=== PATIENT | female | born 1990 | race African-American/Black ===

== ENCOUNTER 2016-05-29 12:11 | Inpatient (IN) | payer OTHER ==
[2016-05-29 12:15] VITALS: BMI 32.3
[2016-05-29] MEDS ORDERED: ALBUTEROL SO4 2.5/IPRATROPIUM 0.5 INH SOL 3 ML VIAL.NEB. NEB ONE ×2 (13:19→13:20)
--- NOTE | 2016-05-29 13:22 | PDOC ---
History of Present Illness <Thomas Sunshineen - Last Filed: 05/29/16 15:17> - General History Source: Patient Exam Limitations: No Limitations - History of Present Illness Initial Comments: 05/29/16 13:18 patient here with complaints of cough, fevers, chills, runny nose and generalized body aches for up to 3 weeks. States the past few days is progressively become worse. Has used [id number] medications with some minimal relief. States was "too busy" to get evaluated. 05/29/16 16:25 Timing/Duration: reports: changing over time, getting worse Severity: reports: mild, moderate Possible Cause: Yes: no prior episodes Associated Symptoms: reports: denies symptoms, cough, fever/chills, muscle aches , nasal congestion, nasal drainage, sore throat <Lorena Green - Last Filed: 05/29/16 22:17> - General Chief Complaint: Cold Symptoms Stated Complaint: CHEST PAIN Time Seen by Provider: 05/29/16 12:55 Past History <Tor Sunshine - Last Filed: 05/29/16 15:17> - Travel Traveled outside of the country in the last 30 days: No Close contact w/someone who was outside of country & ill: No - Past Medical History Other medical history: DENIES. - Psycho/Social/Smoking Cessation Hx Anxiety: No Suicidal Ideation: No Smoking History: Never smoked Hx Alcohol Use: No Drug/Substance Use Hx: No <Lorena Green - Last Filed: 05/29/16 22:17> - Past Medical History Allergies/Adverse Reactions: Allergies Allergy/AdvReac Type Severity Reaction Status Date / Time No Known Allergies Allergy Verified 05/29/16 12:12 Home Medications: Ambulatory Orders Albuterol Sulfate Inhaler - [Ventolin HFA Inhaler -] 1 - 2 inh PO Q4H #1 inhaler 05/29/16 Azithromycin [Zithromax -] 250 mg PO UTDICT #6 tab 05/29/16 Respiratory Specific PMHX - Complaint Specific PMHX Bronchitis: No Pneumonia: No <Lorena Green - Last Filed: 05/29/16 22:17> Review of Systems - Review of Systems Able to Perform ROS?: Yes Is the patient limited Brazilian proficient: Yes Constitutional: Yes: Symptoms Reported, See HPI, Fever, Loss of Appetite, Malaise, Weakness HEENTM: Yes: Symptoms Reported, See HPI, Nose Congestion, Throat Pain Respiratory: Yes: Symptoms reported, See HPI, Cough, Wheezing : No: Symptoms Reported Musculoskeletal: Yes: Symptoms Reported, Muscle Pain, Muscle Weakness Integumentary: Yes: Symptoms Reported Neurological: Yes: Symptoms reported, See HPI, Headache All Other Systems: Reviewed and Negative <Lorena Green - Last Filed: 05/29/16 22:17> *Physical Exam - Vital Signs Last Vital Signs Temp Pulse Resp BP Pulse Ox 97.7 F 102 H 18 146/82 98 05/29/16 12:12 05/29/16 12:12 05/29/16 12:12 05/29/16 12:12 05/29/16 12:12 <Tor Sunshine - Last Filed: 05/29/16 15:17> - Vital Signs Last Vital Signs Temp Pulse Resp BP Pulse Ox 97.7 F 102 H 18 146/82 98 05/29/16 12:12 05/29/16 12:12 05/29/16 12:12 05/29/16 12:12 05/29/16 12:12 - Physical Exam General Appearance: Yes: Nourished, Appropriately Dressed, Apparent Distress, Mild Distress HEENT: positive: ELIZA (glassy), TMs Normal (congested but landmarks easily visualized), Pharyngeal Erythema (no exudate or selling ), Nasal Congestion ( clear), Rhinorrhea. negative: Normal ENT Inspection, Pharynx Normal Neck: positive: Tender, Supple, Lymphadenopathy (R), Lymphadenopathy (L) Respiratory/Chest: positive: Lungs Clear (but coarse inspiratory expiratory breath sounds), Normal Breath Sounds Cardiovascular: positive: Regular Rate Gastrointestinal/Abdominal: positive: Normal Bowel Sounds, Soft. 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, Fully Oriented, Alert, Normal Mood/ Affect, Normal Response, Motor Strength 5/5 <Lorena Green - Last Filed: 05/29/16 22:17> ED Treatment Course - RADIOLOGY Radiology Studies Ordered: Category Date Time Status CHEST X-RAY PORTABLE* [RAD] Stat Radiology 05/29/16 15:00 Ordered - Medications Given in the ED: ED Medications Discontinued Medications Generic Name Dose Route Start Last Admin Trade Name Roxie PRN Reason Stop Dose Admin Albuterol/Ipratropium 1 amp 05/29/16 13:19 05/29/16 13:24 Duoneb - NEB 05/29/16 13:20 1 amp ONCE ONE Administration <Tor Sunshine - Last Filed: 05/29/16 15:17> - LABORATORY CBC & Chemistry Diagram: 05/29/16 16:29 05/29/16 15:10 <Lorena Green - Last Filed: 05/29/16 22:17> Progress Note - Progress Note Progress Note: Upper respiratory infection, influenza testing negative. Some improvement with DuonebWill treat with Zithromax for bronchitis, albuterol to assist airway clearance, and have follow-up with PMD <Lorena Green - Last Filed: 05/29/16 22:17> Medical Decision Making - Medical Decision Making 05/29/16 15:42 Patient ready for discharge, states feels mild improvement after DuoNeb and understands plan for treatment of bronchitis. About EKG that was taken from triage that noted some changes. Upon further review the EKG was noted to have multiple T-wave changes. Case was reviewed with Dr. Lee who agreed patient should be moved to the main emergency department for further evaluation and cardiac workup. Patient was moved to room 3, nurses were updated to treatment thus far and plan patient and family understand current course. <Lorena Green - Last Filed: 05/29/16 22:17> *DC/Admit/Observation/Transfer <Tor Sunshine - Last Filed: 05/29/16 15:17> - Discharge Dispostion Admit: Yes <Lorena Green - Last Filed: 05/29/16 22:17> Diagnosis at time of Disposition: Bronchitis, Myocarditis - Discharge Dispostion Condition at time of disposition: Stable - Prescriptions - Referrals - Patient Instructions - Post Discharge Activity
--- NOTE | 2016-05-29 15:25 | PDOC ---
History of Present Illness - General History Source: Patient Exam Limitations: No Limitations - History of Present Illness Initial Comments: 05/29/16 15:33 The patient is a 26 year old female, with no significant past medical history, who presents to the ED with cough, fevers, chills, runny nose and generalized body aches for up to 3 weeks. She also reports intermittent chest pain, she denies any at the moment. Patient notes that she has been experiencing the following symptoms over the past 3 weeks that progressively worsened over the last few days. She denies chest pain, shortness of breath, headache and dizziness. She denies nausea, vomit, diarrhea and constipation. She denies dysuria, frequency, urgency and hematuria. <Mildred Briscoe - Last Filed: 05/29/16 15:40> <Tor Sunshine - Last Filed: 05/29/16 17:54> - General Chief Complaint: Cold Symptoms Stated Complaint: CHEST PAIN Time Seen by Provider: 05/29/16 12:55 Past History <Mildred Briscoe - Last Filed: 05/29/16 15:40> - Past Medical History Other medical history: DENIES. - Psycho/Social/Smoking Cessation Hx Anxiety: No Suicidal Ideation: No Smoking History: Never smoked Hx Alcohol Use: No Drug/Substance Use Hx: No <Tor Sunshine - Last Filed: 05/29/16 17:54> - Past Medical History Allergies/Adverse Reactions: Allergies Allergy/AdvReac Type Severity Reaction Status Date / Time No Known Allergies Allergy Verified 05/29/16 12:12 Home Medications: Ambulatory Orders Albuterol Sulfate Inhaler - [Ventolin HFA Inhaler -] 1 - 2 inh PO Q4H #1 inhaler 05/29/16 Azithromycin [Zithromax -] 250 mg PO UTDICT #6 tab 05/29/16 Review of Systems - Review of Systems Able to Perform ROS?: Yes Comments:: 05/29/16 15:34 CONSTITUTIONAL: Present: fever, chills Absent: diaphoresis, generalized weakness, malaise, loss of appetite HEENT: Present: rhinorrhea Absent: nasal congestion, throat pain, throat swelling, difficulty swallowing, mouth swelling, ear pain, eye pain, visual Changes CARDIOVASCULAR: Absent: chest pain, syncope, palpitations, irregular heart rate, lightheadedness , peripheral edema RESPIRATORY: Present: cough Absent: shortness of breath, dyspnea with exertion, orthopnea, wheezing, stridor , hemoptysis GASTROINTESTINAL: Absent: abdominal pain, abdominal distension, nausea, vomiting, diarrhea, constipation, melena, hematochezia GENITOURINARY: Absent: dysuria, frequency, urgency, hesitancy, hematuria, flank pain, genital pain MUSCULOSKELETAL: Absent: myalgia, arthralgia, joint swelling SKIN: Absent: rash, itching, pallor HEMATOLOGIC/IMMUNOLOGIC: Absent: easy bleeding, easy bruising, lymphadenopathy, frequent infections ENDOCRINE: Absent: unexplained weight gain, unexplained weight loss, heat intolerance, cold intolerance NEUROLOGIC: Absent: headache, focal weakness or paresthesias, dizziness, unsteady gait, seizure, mental status changes, bladder or bowel incontinence PSYCHIATRIC: Absent: anxiety, depression, suicidal or homicidal ideation, hallucinations. <Mildred Briscoe - Last Filed: 05/29/16 15:40> - Review of Systems Is the patient limited Irish proficient: Yes <Tor Sunshine - Last Filed: 05/29/16 17:54> *Physical Exam - Vital Signs Last Vital Signs Temp Pulse Resp BP Pulse Ox 97.7 F 102 H 18 146/82 98 05/29/16 12:12 05/29/16 12:12 05/29/16 12:12 05/29/16 12:12 05/29/16 12:12 - Physical Exam Comments: 05/29/16 15:36 GENERAL: Well developed, well nourished. Awake and alert. In no acute distress. HEENT: Normocephalic, atraumatic. PERRLA, EOMI. No conjunctival pallor. Sclera are non- icteric. Moist mucous membranes. Oropharynx is clear. NECK: Supple. Full ROM. No JVD. Carotid pulses 2+ and symmetric, without bruits. No thyromegaly. No lymphadenopathy. CARDIOVASCULAR: Regular rate and rhythm. No murmurs, rubs, or gallops. Distal pulses are 2+ and symmetric. PULMONARY: No evidence of respiratory distress. Lungs clear to auscultation bilaterally. No wheezing, rales or rhonchi. ABDOMINAL: Soft. Non-tender. Non-distended. No rebound or guarding. No organomegaly. Normoactive bowel sounds. MUSCULOSKELETAL Normal range of motion at all joints. No bony deformities or tenderness. No CVA tenderness. EXTREMITIES: No cyanosis. No clubbing. No edema. No calf tenderness. SKIN: Warm and dry. Normal capillary refill. No rashes. No jaundice. NEUROLOGICAL: Alert, awake, appropriate. Cranial nerves 2-12 intact. No deficits to light touch and temperature in face, upper extremities and lower extremities. No motor deficits in the in face, upper extremities and lower extremities. Normoreflexic in the upper and lower extremities. Normal speech. Toes are downgoing bilaterally. PSYCHIATRIC: Cooperative. Good eye contact. Appropriate mood and affect. <Mildred Briscoe - Last Filed: 05/29/16 15:40> - Vital Signs Last Vital Signs Temp Pulse Resp BP Pulse Ox 97.7 F 102 H 18 146/82 98 05/29/16 12:12 05/29/16 12:12 05/29/16 12:12 05/29/16 12:12 05/29/16 12:12 <Tor Sunshine - Last Filed: 05/29/16 17:54> Heart Score/ECG Review #1 05/29/16 15:[address] Sunshine Impression: Normal sinus rhythm ST & T wave abnormality, consider inferior ischemia ST & T wave abnormality, consider anterolateral ischemia Vent. rate 93 bpm QRS duration 90 ms The patient is currently pain free but in Afib <Mildred Briscoe - Last Filed: 05/29/16 15:40> ED Treatment Course - Medications Given in the ED: ED Medications Discontinued Medications Generic Name Dose Route Start Last Admin Trade Name Freq PRN Reason Stop Dose Admin Albuterol/Ipratropium 1 amp 05/29/16 13:19 05/29/16 13:24 Duoneb - NEB 05/29/16 13:20 1 amp ONCE ONE Administration <Mildred Briscoe - Last Filed: 05/29/16 15:40> - LABORATORY CBC & Chemistry Diagram: 05/29/16 16:29 05/29/16 15:10 - RADIOLOGY Radiology Studies Ordered: Category Date Time Status CHEST X-RAY PORTABLE* [RAD] Stat Radiology 05/29/16 15:00 Ordered - Medications Given in the ED: ED Medications Discontinued Medications Generic Name Dose Route Start Last Admin Trade Name Freq PRN Reason Stop Dose Admin Albuterol/Ipratropium 1 amp 05/29/16 13:19 05/29/16 13:24 Duoneb - NEB 05/29/16 13:20 1 amp ONCE ONE Administration <Tor Sunshine - Last Filed: 05/29/16 17:54> Medical Decision Making - Medical Decision Making 05/29/16 15:[address] Barber <Mildred Briscoe - Last Filed: 05/29/16 15:40> *DC/Admit/Observation/Transfer - Attestations Scribe Attestion: 05/29/16 15:39 Documentation prepared by KETAN Mccauley, acting as medical sociologist for Tor Sunshine MD. <Mildred Briscoe - Last Filed: 05/29/16 15:40> - Discharge Dispostion Admit: Yes <Tor Sunshine - Last Filed: 05/29/16 17:54> Diagnosis at time of Disposition: Bronchitis, Myocarditis - Discharge Dispostion Condition at time of disposition: Stable - Prescriptions Prescriptions: Albuterol Sulfate Inhaler - [Ventolin HFA Inhaler -] 1 - 2 inh PO Q4H #1 inhaler Azithromycin [Zithromax -] 250 mg PO UTDICT #6 tab - Referrals Referrals: Milton Jenkins MD [Primary Care Provider] - - Patient Instructions Printed Discharge Instructions: DI for Acute Bronchitis Additional Instructions: Rest, drink lots of fluids: Teas, water, soups, Pedialyte Saltwater gargles Steamy showers/seem to face break up mucus Avoid contact with others until fevers and cough resolved Lots of handwashing and good hygiene Continue [id number] medications for symptomatic relief Tylenol or Motrin for fever and pain Complete Zithromax as directed Proventil inhaler 2 puffs 4 times a day for the next 2 days then as needed for cough Followup with private physician in one to 2 days as needed Return to emergency department for worsened symptoms, fevers, dehydration - Post Discharge Activity Work/School Note: Back to Work
[2016-05-29 16:39] LABS: C-REACTIVE PROTEIN 3.4 MG/DL (0.00-0.3)
[2016-05-29 16:40] LABS: TROPONIN I 0.03 ng/ml (0.00-0.05)
[2016-05-29 16:47] LABS: BASOPHIL 0.8 % (0-2.0); EOSINOPHIL 0.3 % (0-4.5); MCH 30.3 pg (25.7-33.7); MCHC 33.7 g/dl (32.0-36.0); MEAN PLT VOLUME 10.1 fl (7.5-11.1); NEUTROPHILS 71.2 % (42.8-82.8); PLATELET COUNT 229 K/MM3 (134-434); RDW 13.2 % (11.6-15.6); WHITE BLOOD COUNT 7.9 K/mm3 (4.0-10.0)
[2016-05-29 17:26] LABS: ALBUMIN 4.1 g/dl (3.4-5.0); ALK PHOS 76 U/L (45-117); ANION GAP 14 (8-16); BILIRUBIN,TOTAL 0.5 mg/dL (0.2-1.0); CALCIUM 8.8 mg/dL (8.5-10.1); CO2 21 mmol/L (21-32); CREATININE 0.8 mg/dL (0.55-1.02); GLUCOSE,RANDOM 75 mg/dL (74-106); SGOT/AST 18 U/L (15-37); SGPT/ALT 17 U/L (12-78); TOT PROT 8.4 g/dl (6.4-8.2)
[2016-05-29] MEDS ORDERED: ACETAMINOPHEN 325 MG TABLET (FP) PO ONE (18:01)
[2016-05-29] MEDS ORDERED: ACETAMINOPHEN 325 MG TABLET (FP) ONE (18:10)
--- NOTE | 2016-05-29 18:13 | PDOC ---
*Physical Exam - Vital Signs Last Vital Signs Temp Pulse Resp BP Pulse Ox 97.7 F 64 20 129/90 99 05/29/16 12:12 05/29/16 16:26 05/29/16 16:26 05/29/16 16:26 05/29/16 16:26 ED Treatment Course - LABORATORY CBC & Chemistry Diagram: 05/29/16 16:29 05/29/16 15:10 - ADDITIONAL ORDERS Additional order review: Laboratory Results 05/29/16 05/29/16 05/29/16 15:15 15:10 15:10 Sodium Potassium Chloride Carbon Dioxide Anion Gap BUN Creatinine Creat Clearance w eGFR Random Glucose Calcium Total Bilirubin AST ALT Alkaline Phosphatase Creatine Kinase CK-MB (CK-2) Troponin I C-Reactive Protein Total Protein Albumin Beta HCG, Quant < 1.0 Serum , Qual Negative Urine HCG, Qual Questionable 05/29/16 05/29/16 15:10 15:08 Sodium 136 Potassium 3.7 Chloride 101 Carbon Dioxide 21 Anion Gap 14 BUN 12 Creatinine 0.8 Creat Clearance w eGFR > 60 Random Glucose 75 Calcium 8.8 Total Bilirubin 0.5 AST 18 ALT 17 Alkaline Phosphatase 76 Creatine Kinase 219 H CK-MB (CK-2) 2.167 Troponin I 0.03 C-Reactive Protein 3.4 H Total Protein 8.4 H Albumin 4.1 Beta HCG, Quant Serum , Qual Urine HCG, Qual 05/29/16 16:29 RBC 5.07 MCV 90.0 MCHC 33.7 RDW 13.2 MPV 10.1 Neutrophils % 71.2 Lymphocytes % 19.8 Monocytes % 7.9 Eosinophils % 0.3 Basophils % 0.8 - Medications Given in the ED: ED Medications Discontinued Medications Generic Name Dose Route Start Last Admin Trade Name Freemmanuel PRN Reason Stop Dose Admin Albuterol/Ipratropium 1 amp 05/29/16 13:19 05/29/16 13:24 Duoneb - NEB 05/29/16 13:20 1 amp ONCE ONE Administration Medical Decision Making - Medical Decision Making 05/29/16 18:13 Dr. Godoy called shortly after agreeing to admit patient stating she would not be able to see patient tomorrow, and to admit to hospitalist instead. I have discussed with Dr. Gonzalez and he accepts patient. *DC/Admit/Observation/Transfer Diagnosis at time of Disposition: Bronchitis, Myocarditis - Discharge Dispostion Condition at time of disposition: Stable - Prescriptions Prescriptions: Albuterol Sulfate Inhaler - [Ventolin HFA Inhaler -] 1 - 2 inh PO Q4H #1 inhaler Azithromycin [Zithromax -] 250 mg PO UTDICT #6 tab - Referrals Referrals: Milton Jenkins MD [Primary Care Provider] - - Patient Instructions Printed Discharge Instructions: DI for Acute Bronchitis Additional Instructions: Rest, drink lots of fluids: Teas, water, soups, Pedialyte Saltwater gargles Steamy showers/seem to face break up mucus Avoid contact with others until fevers and cough resolved Lots of handwashing and good hygiene Continue [id number] medications for symptomatic relief Tylenol or Motrin for fever and pain Complete Zithromax as directed Proventil inhaler 2 puffs 4 times a day for the next 2 days then as needed for cough Followup with private physician in one to 2 days as needed Return to emergency department for worsened symptoms, fevers, dehydration - Post Discharge Activity Work/School Note: Back to Work
[2016-05-29 18:49] LABS: TROPONIN I 0.02 ng/ml (0.00-0.05)
--- NOTE | 2016-05-29 20:24 | PN ---
<JunBernardoHamlet - Last Filed: 05/29/16 20:23> Teaching Attending Note Name of Resident: Florencia Spence ATTENDING PHYSICIAN STATEMENT I saw and evaluated the patient. I reviewed the resident's note and discussed the case with the resident. I agree with the resident's findings and plan as documented. SUBJECTIVE: OBJECTIVE: ASSESSMENT AND PLAN: <MikalJeffery - Last Filed: 05/29/16 21:00> Teaching Attending Note ATTENDING PHYSICIAN STATEMENT: I saw and evaluated the patient. I reviewed the resident's note and discussed the case with the resident. I agree with the resident's findings and plan as documented. SUBJECTIVE: The patient is a 26 year old female, with past medical history of GERD, who presents to the ED with chest pain, cough, subjective fever, chills, hot flashes , runny nose and generalized body aches for up to 3 weeks. She also reports intermittent chest pain related to cough with minimal sputum production and is reproducible upon palpation. The patient notes that her chest pain is not related to exertion and has no limitation to exercise. 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 She denies shortness of breath, headache and dizziness. She denies diarrhea and constipation. She denies dysuria, frequency, urgency and hematuria. ROS +Vomiting, Nausea, Loss of appetite. OBJECTIVE: Vital Signs: Last Vital Signs Temp Pulse Resp BP Pulse Ox 97.7 F 64 20 129/90 99 05/29/16 12:12 05/29/16 16:26 05/29/16 16:26 05/29/16 16:26 05/29/16 16:26 GENERAL: Awake, alert, and fully oriented, in no acute distress HEENT: Atraumatic. Moist mucosa. No JVD no sinus tenderness no LAD LUNGS: No distress, speaks full sentences, clear to auscultation bilaterally HEART: Regular rate and rhythm, normal S1 and S2, no murmurs, rubs or gallops ABDOMEN: Soft, nontender, normoactive bowel sounds. No guarding, no rebound. No masses EXTREMITIES: Normal inspection, Normal range of motion, no edema. No clubbing or cyanosis. NEUROLOGICAL: No focal deficits noted SKIN: Warm, Dry, normal turgor, no rashes or lesions noted. Labs: CBCD WBC 7.9 K/mm3 (4.0-10.0) 05/29/16 16:29 RBC 5.07 M/mm3 (3.60-5.2) 05/29/16 16:29 Hgb 15.4 GM/dL (10.7-15.3) H 05/29/16 16:29 Hct 45.6 % (32.4-45.2) H 05/29/16 16:29 MCV 90.0 fl (80-96) 05/29/16 16: MCHC 33.7 g/dl (32.0-36.0) 05/29/16 16: RDW 13.2 % (11.6-15.6) 05/29/16 16: Plt Count 229 K/MM3 (134-434) 05/29/16 16:29 MPV 10.1 fl (7.5-11.1) 05/29/16 16:29 CMP Sodium 136 mmol/L (136-145) 05/29/16 15:10 Potassium 3.7 mmol/L (3.5-5.1) 05/29/16 15:10 Chloride 101 mmol/L (98-107) 05/29/16 15:10 Carbon Dioxide 21 mmol/L (21-32) 05/29/16 15:10 Anion Gap 14 (8-16) 05/29/16 15:10 BUN 12 mg/dL (7-18) 05/29/16 15:10 Creatinine 0.8 mg/dL (0.55-1.02) 05/29/16 15:10 Creat Clearance w eGFR > 60 (>60) 05/29/16 15:10 Calcium 8.8 mg/dL (8.5-10.1) 05/29/16 15:10 Total Bilirubin 0.5 mg/dL (0.2-1.0) 05/29/16 15:10 AST 18 U/L (15-37) 05/29/16 15:10 ALT 17 U/L (12-78) 05/29/16 15:10 Alkaline Phosphatase 76 U/L (45-117) 05/29/16 15:10 Total Protein 8.4 g/dl (6.4-8.2) H 05/29/16 15:10 Albumin 4.1 g/dl (3.4-5.0) 05/29/16 15:10 CBC, BMP 05/29/16 16:29 05/29/16 15:10 Troponin, BNP 05/29/16 05/29/16 15:08 16:14 Troponin I 0.03 0.02 Imaging: ECG Impression: Normal sinus rhythm. T wave inversions in the inferior and anterior leads. CXR Impression: Bilateral interstitial changes. ASSESSMENT AND PLAN: 1. Viral URI- possibly transmitted from children at work place versus atypical pneumonia due to interstitial infiltrates on chest x-ray -Send nasal PCR for viruses -Send mycoplasma IGM -Send legionella ag in urine -start azithromycin 500 mg PO daily for 5 days 2. CP- likely musculoskeletal secondary to cough unlikely ACS troponin x1 negative -r/o myocarditis secondary to viral URI. -Repeat troponin -Repeat ESR -Repeat ECG -Ibuprofen 400 mg Q6 PRN -Transthoracic echo when feasible -Cardiology consult 3. DVT PPX- low risk for DVT -Early ambulation 4. Normal diet Admit to telemetry. Documentation prepared by Jeffery Ren, acting as medical physicist for Dr. Jun MD.
--- NOTE | 2016-05-29 20:35 | HP ---
CHIEF COMPLAINT: Chest pain/pressure with cough PCP: Dr. Angela Godoy HISTORY OF PRESENT ILLNESS: Patient is a 26 year old female with a PMHx of GERD who presents to the ED complaining of intermittent midsternal chest pain described as a heavy and pressure-like feeling for the last three weeks associated with a minimal productive cough, subjective fever, chills, hot flashes, rhinorrhea, nausea, vomiting and generalized body aches. Patient reports pain is reproducible upon palpation and occurs when she coughs and five minutes after she coughs with a severity of 10/10. Patient states that warm compresses on her chest help alleviate the pain for a short amount of time. She denies any chest pain related to exertion. 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 Patient denies having her flu shot this year. Otherwise, patient denies headaches, dizziness, loss of consciousness, acute visual changes, throat pain, ear pain, shortness of breath, palpitations, abdominal pain, dysuria, frequency. ER course was notable for: (1) EKG (2) Influenza swab negative (3) Tylenol, albuterol Recent Travel: None PAST MEDICAL HISTORY: GERD PAST SURGICAL HISTORY: None Social History: Smoking:Denies Alcohol: Denies Drugs: Denies Family History: Uncle from sudden age 60's, mother had 3 stents and HTN Allergies: No Known Allergies Allergy (Verified 05/29/16 12:12) HOME MEDICATIONS: Medication Instructions Recorded Albuterol Sulfate Inhaler - 1 - 2 inh PO Q4H #1 inhaler 05/29/16 [Ventolin HFA Inhaler -] Azithromycin [Zithromax -] 250 mg PO UTDICT #6 tab 05/29/16 REVIEW OF SYSTEMS CONSTITUTIONAL: Present: fever, chills, diaphoresis, generalized weakness, malaise, loss of appetite Absent: weight change HEENT: Present: rhinorrhea Absent: nasal congestion, throat pain, throat swelling, difficulty swallowing, mouth swelling, ear pain, eye pain, visual changes CARDIOVASCULAR: Present: chest pain Absent: syncope, palpitations, irregular heart rate, lightheadedness, peripheral edema RESPIRATORY: Present: cough Absent: Shortness of breath, dyspnea with exertion, orthopnea, wheezing, stridor , hemoptysis GASTROINTESTINAL: Absent: abdominal pain, abdominal distension, nausea, vomiting, diarrhea, constipation, melena, hematochezia GENITOURINARY: Absent: dysuria, frequency, urgency, hesitancy, hematuria, flank pain, genital pain MUSCULOSKELETAL: Absent: myalgia, arthralgia, joint swelling, back pain, neck pain SKIN: Absent: rash, itching, pallor HEMATOLOGIC/IMMUNOLOGIC: Absent: easy bleeding, easy bruising, lymphadenopathy, frequent infections ENDOCRINE: Absent: unexplained weight gain, unexplained weight loss, heat intolerance, cold intolerance NEUROLOGIC: Absent: headache, focal weakness or paresthesias, dizziness, unsteady gait, seizure, mental status changes, bladder or bowel incontinence PSYCHIATRIC: Absent: anxiety, depression, suicidal or homicidal ideation, hallucinations. PHYSICAL EXAMINATION GENERAL: Awake, alert, and fully oriented, in no acute distress. HEAD: Normal with no signs of trauma. EYES: Pupils equal, round and reactive to light, extraocular movements intact, sclera anicteric, conjunctiva clear. No lid lag. EARS, NOSE, THROAT: Ears normal, nares patent, oropharynx clear without exudates. Moist mucous membranes. NECK: Normal range of motion, supple without lymphadenopathy, JVD, or masses. LUNGS: Wheezing in bilateral lower lungs, with no crackles. No accessory muscle use. HEART: Tenderness upon palpation of midsternal chest. Regular rate and rhythm, normal S1 and S2 without murmur, rub or gallop. ABDOMEN: Soft, nontender, not distended, normoactive bowel sounds, no guarding, no rebound, no masses. No hepatomegaly or splenomegaly. MUSCULOSKELETAL: Normal range of motion at all joints. No bony deformities or tenderness. No CVA tenderness. UPPER EXTREMITIES: No peripheral edema. LOWER EXTREMITIES: No peripheral edema. NEUROLOGICAL: Cranial nerves II-XII intact. Normal speech. PSYCHIATRIC: Cooperative. Good eye contact. Appropriate mood and affect. SKIN: Warm, dry, normal turgor, no rashes or lesions noted. Chest X-Ray: Bilateral interstitial markings EKG: Normal Sinus Rhythm, (+) T wave inversions in the inferior and anterior leads. ASSESSMENT/PLAN: Patient is a 26 year old female with a PMHx of GERD who presents to the ED with URI symptoms associated with reproducible chest pain worsened with coughing. Patient admitted to telemetry for observation for further management and monitoring. Chest pain -Reproducible and likely costrochondritis secondary to coughing -Will rule out myocarditis from viral URI -Troponin negative x1, will repeat -Repeat EKG in the morning -Ibuprofen 400mg Q6H PRN -ECHO -Cardiology consult -Repeat ESR Upper Respiratory infection -Possibly from atypical pneumonia -Possibly transmitted from work -Chest x-ray revealed interstitial infiltrates -Respiratory PCR ordered -Urine Legionella antigen -Mycoplasma IGM -Azithromycin 500mg daily -DuoNeb PRN F/E/N -On no Fluids -Electrolytes wnl -Regular diet Prophylaxis -SCD's for prophylaxis -No GI prophylaxis required Disposition -Full code -Admit to tele observation. Awaiting to be seen by cardiology Visit type - Emergency Visit Emergency Visit: Yes ED Registration Date: 05/29/16 Care time: The patient presented to the Emergency Department on the above date and was hospitalized for further evaluation of their emergent condition. - New Patient This patient is new to me today: Yes Date on this admission: 05/30/16 - Critical Care Critical Care patient: No
[2016-05-29] MEDS ORDERED: IBUPROFEN 400 MG TABLET (FP) PO PRN (20:44)
[2016-05-30] MEDS ORDERED: AZITHROMYCIN 250 MG TABLET (FP) PO ONE (02:02)
[2016-05-30] MEDS ORDERED: ALBUTEROL SO4 2.5/IPRATROPIUM 0.5 INH SOL 3 ML VIAL.NEB. NEB PRN (02:03)
[2016-05-30] MEDS ORDERED: AZITHROMYCIN 250 MG TABLET (FP) ONE (02:06)
[2016-05-30] MEDS ORDERED: ALBUTEROL SO4 2.5/IPRATROPIUM 0.5 INH SOL 3 ML VIAL.NEB. NEB ONE (02:08)
[2016-05-30 05:40] LABS: MCH 30.3 pg (25.7-33.7); MCHC 33.8 g/dl (32.0-36.0); MEAN CELL VOLUME 89.6 fl (80-96); MEAN PLT VOLUME 9.3 fl (7.5-11.1); PLATELET COUNT 200 K/MM3 (134-434); RDW 13.1 % (11.6-15.6); WHITE BLOOD COUNT 6.3 K/mm3 (4.0-10.0)
[2016-05-30 06:11] LABS: ALBUMIN 3.7 g/dl (3.4-5.0); ANION GAP 8 (8-16); CALCIUM 8.5 mg/dL (8.5-10.1); CO2 24 mmol/L (21-32); CREATININE 0.9 mg/dL (0.55-1.02); GLUCOSE,RANDOM 109 mg/dL (74-106); SGOT/AST 19 U/L (15-37); SGPT/ALT 17 U/L (12-78)
[2016-05-30 06:13] LABS: ALK PHOS 68 U/L (45-117); BILIRUBIN,TOTAL 0.4 mg/dL (0.2-1.0); TOT PROT 7.8 g/dl (6.4-8.2)
[2016-05-30 07:29] LABS: PLATELET COMMENT2 NO CLOTTING DETECTED; PLATELET COMMENT3 FEW LARGE PLTS; PLATELET ESTIMATE ADEQUATE (NORMAL); SMUDGE CELLS FEW
[2016-05-30] MEDS ORDERED: guaiFENesin 200 MG/10 ML 10 ML UNIT-DOSE CUPS PO PRN (08:57)
--- NOTE | 2016-05-30 08:57 | PN ---
Progress Note, Physician - Current Medication List Current Medications: Active Medications Albuterol/Ipratropium (Duoneb -) 1 amp NEB Q6H PRN PRN Reason: SHORTNESS OF BREATH Last Admin: 05/30/16 02:13 Dose: 1 amp Ibuprofen (Motrin -) 400 mg PO Q6H PRN PRN Reason: PAIN - Objective Vital Signs: Vital Signs Temperature 97.7 F 05/29/16 12:12 Pulse Rate 59 L 05/30/16 07:53 Respiratory Rate 18 05/30/16 07:53 Blood Pressure 122/76 05/30/16 07:53 O2 Sat by Pulse Oximetry (%) 100 05/30/16 07:53 Constitutional: Yes: Well Nourished, No Distress, Calm Eyes: Yes: WNL, Conjunctiva Clear HENT: Yes: WNL, Atraumatic, Normocephalic Neck: Yes: WNL, Supple, Trachea Midline Cardiovascular: Yes: WNL, Regular Rate and Rhythm Respiratory: Yes: WNL, Regular, CTA Bilaterally Gastrointestinal: Yes: WNL, Normal Bowel Sounds Musculoskeletal: Yes: WNL Extremities: Yes: WNL Edema: No Integumentary: Yes: WNL Neurological: Yes: WNL, Alert, Oriented ...Motor Strength: WNL Psychiatric: Yes: WNL Impression/Plan Impression/Plan: 26 year old woman admitted for chest pain Chest pain -pt has had URI symptoms for the past 2 weeks and had pleuritic pain but yesterday had midsternal chest pressure with SOB and diaphoresis -has history significant for mother with CAD and [place] and Father's identical twin brother who had sudden cardiac -trops negative x2 -EKG shows flipped t waves in inferior leads -discussed case at length with cardio attending and it is agreed that pt should have inpatient 2D echo in the AM Visit type - Emergency Visit Emergency Visit: Yes ED Registration Date: 05/30/16 Care time: The patient presented to the Emergency Department on the above date and was hospitalized for further evaluation of their emergent condition. - New Patient This patient is new to me today: Yes Date on this admission: 05/30/16 - Critical Care Critical Care patient: No
--- NOTE | 2016-05-30 12:20 | CON.CARD ---
Consult Consult Specialty:: Cardiology Referred by:: ER Reason for Consultation:: Abnormal EKG, possible myocarditis - History of Present Illness Chief Complaint: viral symptoms as well as chest pain History of Present Illness: 26 year old woman with no pmh with 3 week history of URI symptoms, cough, fever , chillls, runny nose, body aches, felt better yesterday and went out of the house. she then felt sudden onset sob, and chest pressure thus she came to the ER. Pt. seen and examined in the ER in nad. still has chest pressure with palpation of her chest and with movements of her upper body. denies any sob. no palpitations. no pnd, orthopnea, or LE edema. - History Source History Provided By: Patient, Medical Record Limitations to Obtaining History: No Limitations - Past Medical History ...LMP: 05/23/16 ...: No - Alcohol/Substance Use Hx Alcohol Use: No - Smoking History Smoking history: Never smoked - Social History ADL: Independent History of Recent Travel: No Home Medications - Allergies Allergies/Adverse Reactions: Allergies Allergy/AdvReac Type Severity Reaction Status Date / Time No Known Allergies Allergy Verified 05/29/16 12:12 - Home Medications Home Medications: Ambulatory Orders NK [No Known Home Medication] 05/30/16 Family Disease History - Family Disease History Family Disease History: Heart Disease: Mother Other Family History: uncle-[place] early age Review of Systems - Review of Systems Constitutional: reports: Chills, Fever, Malaise Eyes: denies: No Symptoms, Blind Spots, Blurred Vision, Double Vision, Eye Pain , Floaters, Photophobia, Recent Change in Vision, Other HENT: reports: Nasal Congestion, Throat Pain. denies: No Symptoms, Difficult Swallowing, Ear Discharge, Ear Pain, Epistaxis, Gingival Bleeding, Hearing Loss , Mouth Swelling, Ocular Prosthesis, Toothache, Ringing in Ears, Other Neck: denies: No Symptoms, Decreased ROM, Lumps, Pain on Movement, Stiffness, Swollen Glands, Tenderness, Other Cardiovascular: reports: Chest Pain, Shortness of Breath. denies: No Symptoms, Edema, Palpitations, Other Respiratory: reports: Cough, SOB. denies: No Symptoms, Exercise Intolerance, Hemoptysis, Orthopnea, PND, Snoring, SOB on Exertion, Wheezing, Other Gastrointestinal: denies: No Symptoms, Abdominal Pain, Bloating, Constipation, Diarrhea, Dysphagia, Indigestion, Melena, Nausea, Rectal Bleeding, Vomiting, Vomiting Blood, Other Genitourinary: denies: No Symptoms, Burning, Discharge, Dysuria, Flank Pain, Frequency, Hematuria, Incontinence, Lesions, Menses, Pain, Testicular Mass, Testicular Pain, Testicular Swelling, Urgency, Vaginal Bleeding, Other Breasts: denies: No Symptoms Reported, See HPI, Breast Implants, Discharge from Nipple, Lumps, Pain, Skin Changes, Other Musculoskeletal: denies: No Symptoms, Back Pain, Crepitus, Decreased ROM, Extremity Pain, Joint Pain, Joint Swelling, Muscle Pain, Muscle Cramps, Muscle Weakness, Other Integumentary: denies: No Symptoms, Blister, Bruising, Change in Color, Eczema, Erythema, Incision, Lesions, Lump, Pallor, Pruritis, Rash, Wound, Other Neurological: denies: No Symptoms, Change in LOC, Change in Speech, Confusion, Dizziness, Headache, Incoordination, Numbness, Parasthesia, Pre-Existing Deficit , Seizure, Syncope, Tremors, Unsteady Gait, Weakness, Other Endocrine: denies: No Symptoms, Excessive Sweating, Flushing, Increased Hunger, Increased Thirst, Intolerance to Cold, Intolerance to Heat, Unexplained Weight Gain, Unexplained Weight Loss, Other Hematology/Lymphatic: denies: No Symptoms, Easily Bruised, Excessive Bleeding, Swollen Glands, Other Psychiatric: denies: No Symptoms, Altered Sleep Pattern, Anxiety, Depression, Hallucinations, Panic, Paranoia, Suicidal, Other Vital Signs: Vital Signs Temperature 97.7 F 05/29/16 12:12 Pulse Rate 59 L 05/30/16 07:53 Respiratory Rate 18 05/30/16 07:53 Blood Pressure 122/76 05/30/16 07:53 O2 Sat by Pulse Oximetry (%) 93 L 05/30/16 10:49 Constitutional: Yes: Well Nourished, No Distress, Calm Eyes: Yes: WNL, Conjunctiva Clear, EOM Intact, PERRL HENT: Yes: WNL, Atraumatic, Normocephalic Neck: Yes: WNL, Supple, Trachea Midline Respiratory: Yes: WNL, Regular, CTA Bilaterally. No: Rales, Rhonchi, Wheezes Gastrointestinal: Yes: WNL, Normal Bowel Sounds, Soft. No: Distention, Tenderness Renal/: Yes: WNL Cardiovascular: Yes: WNL, Regular Rate and Rhythm. No: Bradycardia, Tachycardia , Pulse Irregular, Gallop, Rub, Varicosities JVD: No Carotid Bruit: No PMI: Non-Displaced Heart Sounds: Yes: S1, S2. No: Split S2, S3, S4, Clicks, Gallop, Rub, Bruit Murmur: No: Systolic Murmur, Diastolic Murmur Musculoskeletal: Yes: WNL Extremities: Yes: WNL Edema: No Peripheral Pulses WNL: Yes Peripheral Pulses: 2+ Left Doralis Pedis, 2+ Right Dorsalis Pedis Integumentary: Yes: WNL Neurological: Yes: WNL, Alert, Oriented, Cran Nerves II-XII Intact ...Motor Strength: WNL Psychiatric: Yes: WNL, Alert, Oriented - Other Data Labs, Other Data: Laboratory Tests 05/29/16 05/29/16 05/29/16 15:08 15:13 16:14 WBC Hgb Hct Plt Count ESR 58 H Sodium Potassium Chloride Carbon Dioxide BUN Creatinine Random Glucose Calcium Total Bilirubin AST ALT Alkaline Phosphatase Creatine Kinase 219 H 204 H Troponin I 0.03 0.02 Total Protein Albumin 05/30/16 05/30/16 05/30/16 05:30 05:30 05:30 WBC 6.3 Hgb 14.4 Hct 42.6 Plt Count 200 ESR Sodium 139 Potassium 4.1 Chloride 107 Carbon Dioxide 24 BUN 11 Creatinine 0.9 Random Glucose 109 H D Calcium 8.5 Total Bilirubin 0.4 AST 19 ALT 17 Alkaline Phosphatase 68 Creatine Kinase Troponin I < 0.02 Total Protein 7.8 Albumin 3.7 ekg-nsr 93bpm T inversions II, III, aVF, V2, V4, St depressions V5, V6, II, III , aVF Imaging - Results Chest X-ray: Report Reviewed, Image Reviewed EKG: Report Reviewed, Image Reviewed Other: Report Reviewed, Image Reviewed Problem List - Problems (1) Bronchitis Code(s): J40 - BRONCHITIS, NOT SPECIFIED ACUTE OR CHRONIC (2) Myocarditis Code(s): I51.4 - MYOCARDITIS, UNSPECIFIED Assessment/Plan 26 year old woman with no pmh with 3 week history of URI symptoms, cough, fever , chillls, runny nose, body aches, felt better yesterday and went out of the house. she then felt sudden onset sob, and chest pressure thus she came to the ER. Found in the ER to have an abnormal ekg, concern for myocarditis. Chest pain-atypical, unlikely ischemia, reproducible on exam -concern for myocarditis with recent URI and abnormal EKG -pt is hemodynamically stable and symptoms have improved -cardiac enzymes wnl -cont tele monitoring for now -plan for echo tomorrow to evaluate LV function -if echo tomorrow shows no sig structural heart disease or pericardial effusion pt would be acceptable for discharge home from a cardiac standpoint with plan for close outpatient follow up and consideration for cardiac mri as well as additional work up as needed
[2016-05-30] MEDS: INFLUENZA VACCINE 45 MCG/0.5 ML (MDV 16-17) IM ONE ×2 (14:09→14:14)
--- NOTE | 2016-05-30 23:36 | EKG ---
Test Reason : Blood Pressure : / mmHG Vent. Rate : 093 BPM Atrial Rate : 093 BPM P-R Int : 160 ms QRS Dur : 090 ms QT Int : 342 ms P-R-T Axes : 078 051 -35 degrees QTc Int : 425 ms NORMAL SINUS RHYTHM ABNORMAL ECG NO PREVIOUS ECGS AVAILABLE Confirmed by SHABANA LYNCH MD ([id number]) on 05/30/2016 11:35:41 PM Referred By: Confirmed By:SHABANA LYNCH MD
[2016-05-31 08:17] VITALS: BP 116/63; PULSE 75; TEMP 97.8
--- NOTE | 2016-05-31 10:43 | PN ---
Teaching Attending Note Name of Resident: John Beavers ATTENDING PHYSICIAN STATEMENT I saw and evaluated the patient. I reviewed the resident's note and discussed the case with the resident. I agree with the resident's findings and plan as documented. SUBJECTIVE: seen and evaluated at the bedside OBJECTIVE: resting comfortably in bed ASSESSMENT AND PLAN: 26 year old woman admitted for chest pain Chest pain -pt has had URI symptoms for the past 2 weeks and had pleuritic pain but yesterday had midsternal chest pressure with SOB and diaphoresis -has history significant for mother with CAD and [place] and Father's identical twin brother who had sudden cardiac -trops negative x2 -EKG shows flipped t waves in inferior leads -discussed case at length with cardio attending and it is agreed that pt should have inpatient 2D echo today -possible discharge if no abnormalities found on echo
--- NOTE | 2016-05-31 11:32 | DS ---
Physical Exam: SUBJECTIVE: Patient seen and examined at bedside. Feels well today. Has minimal cough. Denies N/V/F/C, CP, SOB, abd pain. OBJECTIVE: Vital Signs Temperature 97.8 F 05/31/16 08:15 Pulse Rate 75 05/31/16 08:15 Respiratory Rate 18 05/31/16 08:15 Blood Pressure 116/63 05/31/16 08:15 O2 Sat by Pulse Oximetry (%) 99 05/31/16 08:07 PHYSICAL EXAM GENERAL: The patient is awake, alert, and fully oriented, in no acute distress. HEAD: Normal with no signs of trauma. EYES: PERRL, extraocular movements intact, sclera anicteric, conjunctiva clear. ENT: Ears normal, nares patent, oropharynx clear without exudates, moist mucous membranes. NECK: Trachea midline, full range of motion, supple. LUNGS: Mild crackles B/L, no accessory muscle use. HEART: Regular rate and rhythm, S1, S2 without murmur, rub or gallop. ABDOMEN: Soft, nontender, nondistended, normoactive bowel sounds, no guarding, no rebound, no hepatosplenomegaly, no masses. EXTREMITIES: 2+ pulses, warm, well-perfused, no edema. NEUROLOGICAL: Normal speech, gait not observed. PSYCH: Normal mood, normal affect. SKIN: Warm, dry, normal turgor, no rashes or lesions noted. LABS HOSPITAL COURSE: Date of Admission:05/30/16 Date of Discharge: 05/31/16 26 y/o F with PMH of GERD presented to ER with c/o intermittent midsternal chest pain which was heavy and pressure like. Sx have been present for 3 weeks and associated with productive cough, subjective fevers, hot flashes, rhinorrhea , N/V, and generalized body aches. Pain is reproducible on palpation. 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 She did not have flu shot this year. Chest pain seemed most likely from URI and coughing. She improved during hospital course. CXR showed no acute pathology. EKG showed flipped T waves on inferior leads. She had echo and stress echo done which showed were unremarkable and negative for abnormalities. Pt was discharged to follow up with PCP in 1 week and to f/u with Dr. Barber in 1-2 weeks. Minutes to complete discharge: 25 Discharge Summary Reason For Visit: BRONCHITIS, MYOCARDITIS Current Active Problems Bronchitis (Acute) Myocarditis (Acute) Condition: Stable - Instructions Diet, Activity, Other Instructions: Rest, drink lots of fluids: Teas, water, soups Saltwater gargles Steamy showers/seem to face break up mucus Lots of handwashing and good hygiene Continue [id number] medications for symptomatic relief Tylenol or Motrin for fever and pain Followup with private physician in one to 2 days as needed Return to emergency department for worsened symptoms, fevers, dehydration Follow up with Dr. Barber, your chief service observer, in 1-2 weeks. Referrals: Milton Jenkins MD [Primary Care Provider] - 1 Week Nick Barber MD [Staff Physician] - 1 Week - Home Medications Comprehensive Discharge Medication List: Ambulatory Orders NK [No Known Home Medication] 05/30/16 This patient is new to me today: Yes Date on this admission: 05/31/16 Emergency Visit: Yes ED Registration Date: 05/30/16 Care time: The patient presented to the Emergency Department on the above date and was hospitalized for further evaluation of their emergent condition. Critical Care patient: No - Discharge Referral Referred to [facility] No
--- NOTE | 2016-05-31 12:31 | PN ---
Progress Note, Physician Chief Complaint: cp History of Present Illness: 26 year old woman with no pmh with 3 week history of URI symptoms, cough, fever , chillls, runny nose, body aches, felt better yesterday and went out of the house. she then felt sudden onset sob, and chest pressure thus she came to the ER. Pt. seen and examined in the ER in nad. still has chest pressure with palpation of her chest and with movements of her upper body. denies any sob. no palpitations. no pnd, orthopnea, or LE edema. - Current Medication List Current Medications: Active Medications Albuterol/Ipratropium (Duoneb -) 1 amp NEB Q6H PRN PRN Reason: SHORTNESS OF BREATH Last Admin: 05/30/16 02:13 Dose: 1 amp Guaifenesin (Robitussin -) 10 ml PO Q4H PRN PRN Reason: COUGH Ibuprofen (Motrin -) 400 mg PO Q6H PRN PRN Reason: PAIN - Objective Vital Signs: Vital Signs Temperature 97.8 F 05/31/16 08:15 Pulse Rate 75 05/31/16 08:15 Respiratory Rate 18 05/31/16 08:15 Blood Pressure 116/63 05/31/16 08:15 O2 Sat by Pulse Oximetry (%) 99 05/31/16 08:07 Eyes: Yes: WNL, Conjunctiva Clear, EOM Intact HENT: Yes: WNL, Atraumatic, Normocephalic Neck: Yes: WNL, Supple, Trachea Midline Cardiovascular: Yes: WNL, Regular Rate and Rhythm Respiratory: Yes: WNL, Regular, CTA Bilaterally Gastrointestinal: Yes: WNL, Normal Bowel Sounds Genitourinary: Yes: WNL Musculoskeletal: Yes: WNL Extremities: Yes: WNL Edema: No Integumentary: Yes: WNL Neurological: Yes: WNL, Alert, Oriented ...Motor Strength: WNL Psychiatric: Yes: WNL Assessment/Plan Assessment/Plan 26 year old woman with no pmh with 3 week history of URI symptoms, cough, fever , chillls, runny nose, body aches, felt better yesterday and went out of the house. she then felt sudden onset sob, and chest pressure thus she came to the ER. Found in the ER to have an abnormal ekg, concern for myocarditis. Chest pain-atypical, unlikely ischemia, reproducible on exam -concern for myocarditis with recent URI and abnormal EKG -pt is hemodynamically stable and symptoms have improved -cardiac enzymes wnl -cont tele monitoring for now -plan for echo tomorrow to evaluate LV function -if echo shows no sig structural heart disease or pericardial effusion I would recommend ECHO stress test to evaluate abnormal EKG and the chest pain.
[2016-06-03 00:07] LABS: INFLUENZA ANTIBODY TYPE B Negative (Neg:<1:8)
[2016-06-04 00:09] LABS: COXSACKIE A16 IGM Negative titer (Neg:<1:10); COXSACKIE A24 IGM Negative titer (Neg:<1:10); COXSACKIE A7 IGM Negative titer (Neg:<1:10); COXSACKIE A9 IGM Negative titer (Neg:<1:10)
== END 2016-05-31 17:29 | disposition home or self-care (01) | DRG 207 ==
LOC: JERFT 12:11 → SUPCPDRO 12:11 → JERFT 14:25 → JERBED 18:01 → UNDOADMIN 18:01 → JERBED 05-30 07:32 → J4W 05-30 15:05
PROVIDERS: ADMIT Internal Medicine; ATTEND Internal Medicine
DX: I51.4 Myocarditis, unspecified (principal); J20.9 Acute bronchitis, unspecified; J06.9 Acute upper respiratory infection, unspecified; K21.9 Gastro-esophageal reflux disease without esophagitis; R07.89 Other chest pain
CPT/HCPCS: 36415; 71010-TC; 80053; 82550; 82553; 84484; 84702; 84703; 85025; 85651; 86140; 86658; 86710; 86738; 87040; 87633; 87804; 87899; 93005; 93010; 93306-TC; 93351; 99285-25; G0008; Q2037

== ENCOUNTER 2017-06-02 09:01 | Emergency (ER) | payer OTHER ==
[2017-06-02 09:08] VITALS: TEMP 98.1; BMI 28.2
[2017-06-02] MEDS ORDERED: KETOROLAC TROMETHAMINE 30 MG/1 ML VIAL IVPUSH ONE (10:02)
[2017-06-02] MEDS ORDERED: KETOROLAC TROMETHAMINE 30 MG/1 ML VIAL ONE (10:14)
[2017-06-02 10:17] LABS: BASO % 0.3 % (0-2.0); EOS % 0.2 % (0-4.5); HEMATOCRIT 41.3 % (32.4-45.2); HEMOGLOBIN 13.4 GM/dL (10.7-15.3); MCH 30.4 pg (25.7-33.7); MCHC 32.4 g/dl (32.0-36.0); MEAN CELL VOLUME 93.9 fl (80-96); MEAN PLT VOLUME 9.4 fl (7.5-11.1); MONO % 4.2 % (3.8-10.2); NEUT % 81.3 % (42.8-82.8); PLATELET COUNT 254 K/MM3 (134-434); RDW 13.7 % (11.6-15.6); WHITE BLOOD COUNT 11.6 K/mm3 (4.0-10.0)
[2017-06-02 10:33] LABS: INR 1.18 (0.82-1.09); PROTHROMBIN TIME (PATIENT) 13.3 SEC (9.98-11.88)
[2017-06-02 10:36] LABS: ACTIVATED PTT 29.2 SECONDS (26.9-34.4)
[2017-06-02 10:41] LABS: ALBUMIN 4.2 g/dl (3.4-5.0); ANION GAP 8 (8-16); BILIRUBIN,TOTAL 0.4 mg/dL (0.2-1.0); BLOOD UREA NITROGEN 14 mg/dL (7-18); CALCIUM 8.9 mg/dL (8.5-10.1); CHLORIDE 108 mmol/L (98-107); CO2 25 mmol/L (21-32); CREATININE 0.8 mg/dL (0.55-1.02); GLUCOSE,RANDOM 82 mg/dL (74-106); SGPT/ALT 19 U/L (12-78); SODIUM 141 mmol/L (136-145); TOT PROT 7.7 g/dl (6.4-8.2)
[2017-06-02 10:43] LABS: ALK PHOS 58 U/L (45-117)
[2017-06-02 10:45] LABS: POTASSIUM 3.9 mmol/L (3.5-5.1); SGOT/AST 16 U/L (15-37)
[2017-06-02 10:45] LABS: HCG,QUALITATIVE URINE NEGATIVE
--- NOTE | 2017-06-02 10:47 | PDOC ---
History of Present Illness - History of Present Illness Initial Comments: 06/02/17 11:15 The patient is a 27 year old female with a significant PMH of bronchitis and myocarditis who presents to the emergency department with midsternal chest pain , upper body aches, and thigh aches that began approximately two days ago. The patient describes the midsternal chest pain as a "punching feeling", constant since this morning, and exacerbated with deep inspiration. The patient reports subjective chills, nasal congestion, and cough but denies fever, palpitations, leg swelling, nausea, vomit, diarrhea and constipation. The patient states the midsternal chest pain is different from her symptoms in May when she was diagnosed with myocarditis. The patient's family history is significant for mother has 3 stents placed and her uncle had cardiac arrest. 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 The patient denies getting her flu shot this year. The patient denies shortness of breath, headache and dizziness. Denies dysuria, frequency, urgency and hematuria. Allergies: NKA Past surgical history: None reported. Social history: No reported alcohol, drug, or cigarette use. PCP: Dr. Jenkins <Debra Bowers - Last Filed: 06/02/17 11:26> - General History Source: Patient Exam Limitations: No Limitations <Myron Mak - Last Filed: 06/02/17 12:16> - General Chief Complaint: Chest Pain Stated Complaint: CHEST PAIN Time Seen by Provider: 06/02/17 09:21 Past History <Debra Bowers - Last Filed: 06/02/17 11:26> - Past Medical History COPD: No DVT: No - Suicide/Smoking/Psychosocial Hx Smoking History: Never smoked Information on smoking cessation initiated: No Hx Alcohol Use: No Drug/Substance Use Hx: No Substance Use Type: None <Myron Mak - Last Filed: 06/02/17 12:16> - Past Medical History Allergies/Adverse Reactions: Allergies Allergy/AdvReac Type Severity Reaction Status Date / Time bee pollen Allergy Verified 06/02/17 09:04 bay flavor Allergy Verified 06/02/17 09:04 Home Medications: Ambulatory Orders Naproxen 500 mg PO BID PRN #20 tablet 06/02/17 Review of Systems - Review of Systems Able to Perform ROS?: Yes Comments:: 06/02/17 11:18 GENERAL/CONSTITUTIONAL: No fever or chills. No weakness. HEAD, EYES, EARS, NOSE AND THROAT: No change in vision. No ear pain or discharge. No sore throat. CARDIOVASCULAR: (+) Midsternal chest pain. No shortness of breath. RESPIRATORY: (+) Nasal congestion. (+) Mild cough. No wheezing, or hemoptysis. GASTROINTESTINAL: No nausea, vomiting, diarrhea or constipation. GENITOURINARY: No dysuria, frequency, or change in urination. MUSCULOSKELETAL: (+) Upper body aches. (+) Thigh aches. No neck or back pain. SKIN: No rash NEUROLOGIC: No headache, vertigo, loss of consciousness, or change in strength/ sensation. ENDOCRINE: No increased thirst. No abnormal weight change. HEMATOLOGIC/LYMPHATIC: No anemia, easy bleeding, or history of blood clots. ALLERGIC/IMMUNOLOGIC: No hives or skin allergy. <Debra Bowers - Last Filed: 06/02/17 11:26> *Physical Exam - Vital Signs Last Vital Signs Temp Pulse Resp BP Pulse Ox 98.1 F 65 16 128/72 100 06/02/17 09:04 06/02/17 09:04 06/02/17 09:04 06/02/17 09:04 06/02/17 09:04 - Physical Exam Comments: 06/02/17 11:19 GENERAL: (+) Nasal congestion. Awake, alert, and fully oriented, in no acute distress HEAD: No signs of trauma EYES: PERRLA, EOMI, sclera anicteric, conjunctiva clear ENT: Auricles normal inspection, hearing grossly normal, nares patent, oropharynx clear without exudates. Moist mucosa NECK: Normal ROM, supple, no lymphadenopathy, JVD, or masses LUNGS: Breath sounds equal, clear to auscultation bilaterally. No wheezes, and no crackles HEART: (+) Midsternal chest pain reproducible to palpation. Regular rate and rhythm, normal S1 and S2, no murmurs, rubs or gallops ABDOMEN: Soft, nontender, normoactive bowel sounds. No guarding, no rebound. No masses EXTREMITIES: Normal range of motion, no edema. No clubbing or cyanosis. No cords, erythema, or tenderness NEUROLOGICAL: Cranial nerves II through XII grossly intact. Normal speech, normal gait SKIN: Warm, Dry, normal turgor, no rashes or lesions noted. <Debra Bowres - Last Filed: 06/02/17 11:26> - Vital Signs Last Vital Signs Temp Pulse Resp BP Pulse Ox 98.1 F 65 16 128/72 100 06/02/17 09:04 06/02/17 09:04 06/02/17 09:04 06/02/17 09:04 06/02/17 09:04 <Myron Mak - Last Filed: 06/02/17 12:16> Heart Score/ECG Review - History History: Slightly suspicious - Electrocardiogram EKG: Normal - Age Age: </= 45 - Risk Factors Based on the list above the patient has:: No risk factors known #1 ECG reviewed & interpreted by me at: 09:15 06/02/17 10:46 NSR 56, no std/marianne, TWI III, normal axis, normal interval, QTC 387 msec <Myron Mak - Last Filed: 06/02/17 12:16> ED Treatment Course - LABORATORY CBC & Chemistry Diagram: 06/02/17 10:08 06/02/17 10:10 - ADDITIONAL ORDERS Additional order review: Laboratory Results 06/02/17 06/02/17 06/02/17 10:37 10:10 10:08 PT with INR 13.30 H INR 1.18 H PTT (Actin FS) 29.2 Sodium 141 Potassium 3.9 Chloride 108 H Carbon Dioxide 25 Anion Gap 8 BUN 14 Creatinine 0.8 Creat Clearance w eGFR > 60 Random Glucose 82 Calcium 8.9 Total Bilirubin 0.4 AST 16 ALT 19 Alkaline Phosphatase 58 Creatine Kinase 446 H Creatine Kinase Index 0.7 CK-MB (CK-2) 3.271 Troponin I < 0.02 Total Protein 7.7 Albumin 4.2 Urine Color Yellow Urine Appearance Clear Urine pH 6.0 Ur Specific [place] 1.031 Urine Protein 2+ H Urine Glucose (UA) Negative Urine Ketones 1+ H Urine Blood Negative Urine Nitrite Negative Urine Bilirubin Negative Urine Urobilinogen 2.0 H Ur Leukocyte Esterase Trace Urine HCG, Qual Negative 06/02/17 10:08 Influenza Types A,B Antigen (ANNIKA) - Final Nasopharyngeal Swab - Final 06/02/17 10:08 RBC 4.40 MCV 93.9 MCHC 32.4 RDW 13.7 MPV 9.4 Neutrophils % 81.3 D Lymphocytes % 14.0 D Monocytes % 4.2 Eosinophils % 0.2 D Basophils % 0.3 - Medications Given in the ED: ED Medications Discontinued Medications Generic Name Dose Route Start Last Admin Trade Name Freq PRN Reason Stop Dose Admin Ketorolac Tromethamine 30 mg 06/02/17 10:02 06/02/17 10:13 Toradol Injection - IVPUSH 06/02/17 10:03 30 mg ONCE ONE Administration <Debra Bowers - Last Filed: 06/02/17 11:26> - LABORATORY CBC & Chemistry Diagram: 06/02/17 10:08 06/02/17 10:10 - ADDITIONAL ORDERS Additional order review: Laboratory Results 06/02/17 06/02/17 10:37 10:10 Sodium 141 Potassium 3.9 Chloride 108 H Carbon Dioxide 25 Anion Gap 8 BUN 14 Creatinine 0.8 Creat Clearance w eGFR > 60 Random Glucose 82 Calcium 8.9 Total Bilirubin 0.4 AST 16 ALT 19 Alkaline Phosphatase 58 Creatine Kinase 446 H Troponin I < 0.02 Total Protein 7.7 Albumin 4.2 Urine HCG, Qual Negative 06/02/17 10:08 Influenza Types A,B Antigen (ANNIKA) - Preliminary Nasopharyngeal Swab - Preliminary 06/02/17 10:08 RBC 4.40 MCV 93.9 MCHC 32.4 RDW 13.7 MPV 9.4 Neutrophils % 81.3 D Lymphocytes % 14.0 D Monocytes % 4.2 Eosinophils % 0.2 D Basophils % 0.3 - RADIOLOGY Radiology Studies Ordered: Category Date Time Status CHEST PA & LAT [RAD] Stat Radiology 06/02/17 10:02 Ordered - Medications Given in the ED: ED Medications Discontinued Medications Generic Name Dose Route Start Last Admin Trade Name Freq PRN Reason Stop Dose Admin Ketorolac Tromethamine 30 mg 06/02/17 10:02 06/02/17 10:13 Toradol Injection - IVPUSH 06/02/17 10:03 30 mg ONCE ONE Administration <Myron Mak - Last Filed: 06/02/17 12:16> Medical Decision Making - Medical Decision Making 06/02/17 10:47 A portion of this note was documented by scribe services under my direction. I have reviewed the details of the note, within reason, and agree with the documentation with the following case summary and management plan written by me. Patient treated in the ED. Nursing notes are reviewed and incorporated into the medical decision-making. Vital signs reviewed. Peripheral IV access obtained by the nurse, laboratory studies are drawn and sent, reviewed and interpreted by myself. Vital Signs Temp Pulse Resp BP Pulse Ox 98.1 F 65 16 128/72 100 06/02/17 09:04 06/02/17 09:04 06/02/17 09:04 06/02/17 09:04 06/02/17 09:04 27-year-old female with history of prior myocarditis presents with approximately 2 days of nasal congestion, body aches, pleuritic chest pain. The patient reports that she's been feeling general malaise and achy. 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 Stated that her chest pain started to worsen with palpation and movement. Denies shortness of breath or exertional component. States that this chest pain is different from her myocarditis that she had several months ago. Denies fevers or chills. Patient's chest pain is very much reproducible. We'll however, send a troponin to rule out myocarditis. However, I have low suspicion. We'll obtain a chest x- ray labs and influenza swab. I suspect overall that this is likely viral syndrome and that the chest pain is very atypical. Overall she is well- appearing and nontoxic. 06/02/17 12:11 CBC, BMP 06/02/17 10:08 06/02/17 10:10 CMP Sodium 141 mmol/L (136-145) 06/02/17 10:10 Potassium 3.9 mmol/L (3.5-5.1) 06/02/17 10:10 Chloride 108 mmol/L (98-107) H 06/02/17 10:10 Carbon Dioxide 25 mmol/L (21-32) 06/02/17 10:10 Anion Gap 8 (8-16) 06/02/17 10:10 BUN 14 mg/dL (7-18) 06/02/17 10:10 Creatinine 0.8 mg/dL (0.55-1.02) 06/02/17 10:10 Creat Clearance w eGFR > 60 (>60) 06/02/17 10:10 Random Glucose 82 mg/dL (74-106) 06/02/17 10:10 Calcium 8.9 mg/dL (8.5-10.1) 06/02/17 10:10 Total Bilirubin 0.4 mg/dL (0.2-1.0) 06/02/17 10:10 AST 16 U/L (15-37) 06/02/17 10:10 ALT 19 U/L (12-78) 06/02/17 10:10 Alkaline Phosphatase 58 U/L (45-117) 06/02/17 10:10 Creatine Kinase 446 IU/L (26-192) H 06/02/17 10:10 Creatine Kinase Index 0.7 % (0.0-5.0) 06/02/17 10:10 CK-MB (CK-2) 3.271 ng/mL (0.5-3.6) 06/02/17 10:10 Troponin I < 0.02 ng/ml (0.00-0.05) 06/02/17 10:10 Total Protein 7.7 g/dl (6.4-8.2) 06/02/17 10:10 Albumin 4.2 g/dl (3.4-5.0) 06/02/17 10:10 Urine Test Results Urine Color Yellow 06/02/17 10:37 Urine Appearance Clear 06/02/17 10:37 Urine pH 6.0 (5.0-8.0) 06/02/17 10:37 Ur Specific [place] 1.031 (1.001-1.035) 06/02/17 10:37 Urine Protein 2+ (NEGATIVE) H 06/02/17 10:37 Urine Glucose (UA) Negative (NEGATIVE) 06/02/17 10:37 Urine Ketones 1+ (NEGATIVE) H 06/02/17 10:37 Urine Blood Negative (NEGATIVE) 06/02/17 10:37 Urine Nitrite Negative (NEGATIVE) 06/02/17 10:37 Urine Bilirubin Negative (NEGATIVE) 06/02/17 10:37 Ur Leukocyte Esterase Trace (NEGATIVE) 06/02/17 10:37 Ur Epithelial Cells Rare /HPF (FEW) 06/02/17 10:37 Urine Mucus Many 06/02/17 10:37 Labs reviewed. Chest xray reviewed. NO acute findings. The patient reported feeling better. I suspect that this is viral syndrome and atypical chest pain. Return precautions given including worsening chest pain, difficulty breathing. Pt verbalizes understanding and agrees with plan. I discussed the physical exam findings, ancillary test results and final diagnoses with the patient. I answered all of the patient's questions. The patient was satisfied with the care received and felt comfortable with the discharge plan and treatment plan. The patient will call their primary care physician within 24 hours to arrange follow-up and will return to the Emergency Department with any new, persistant or worsening symptoms. <Myron Mak - Last Filed: 06/02/17 12:16> *DC/Admit/Observation/Transfer - Attestations Scribe Attestion: 06/02/17 11:21 Documentation prepared by Debra Bowers, acting as medical record administrator for Myron Mak MD. <Debra Bowers - Last Filed: 06/02/17 11:26> - Discharge Dispostion Admit: No <Myron Mak - Last Filed: 06/02/17 12:16> Diagnosis at time of Disposition: Atypical chest pain, Viral syndrome - Discharge Dispostion Disposition: HOME Condition at time of disposition: Stable - Prescriptions Prescriptions: Naproxen 500 mg PO BID PRN #20 tablet PRN Reason: Pain/Fever - Referrals Referrals: Milton Jenkins MD [Primary Care Provider] - - Patient Instructions Printed Discharge Instructions: DI for Atypical Chest Pain, DI for Viral Syndrome Additional Instructions: Your EKG, chest xray, labs, influenza swab is negative. It may take several days before your symptoms improve. Drink plenty of fluids and rest. If you have worsening chest pain or difficulty breathing, please return to the ER for further evaluation. - Post Discharge Activity
[2017-06-02 11:00] LABS: URINE APPEARANCE CLEAR; URINE BILIRUBIN NEGATIVE (NEGATIVE); URINE BLOOD NEGATIVE (NEGATIVE); URINE COLOR YELLOW; URINE GLUCOSE (UA) NEGATIVE (NEGATIVE); URINE KETONE 1+ (NEGATIVE); URINE LEUK ESTERASE TRACE (NEGATIVE); URINE NITRITE NEGATIVE (NEGATIVE)
[2017-06-02 11:06] LABS: URINE PROTEIN 2+ (NEGATIVE)
[2017-06-02] MEDS ORDERED: ACETAMINOPHEN 325 MG TABLET (FP) PO ONE (11:14)
[2017-06-02 11:26] LABS: EPI CELLS RARE /HPF (FEW); URINE HYALINE CAST 5 /lpf; URINE MUCUS MANY
[2017-06-02] MEDS ORDERED: ACETAMINOPHEN 325 MG TABLET (FP) ONE (11:56)
[2017-06-02 12:35] VITALS: BP 121/74; PULSE 75
--- NOTE | 2017-06-02 12:59 | EKG ---
Test Reason : Blood Pressure : / mmHG Vent. Rate : 056 BPM Atrial Rate : 056 BPM P-R Int : 168 ms QRS Dur : 096 ms QT Int : 402 ms P-R-T Axes : 037 047 024 degrees QTc Int : 387 ms POOR DATA QUALITY, INTERPRETATION MAY BE ADVERSELY AFFECTED SINUS BRADYCARDIA WITH SINUS ARRHYTHMIA OTHERWISE NORMAL ECG WHEN COMPARED WITH ECG OF 07-MAR-2017 10:31, NO SIGNIFICANT CHANGE WAS FOUND Confirmed by REAL WARE, MAYANK ([id number]) on 06/02/2017 12:59:02 PM Referred By: Confirmed By:MAYANK NOBLE MD
== END 2017-06-02 12:35 | disposition home or self-care (01) ==
LOC: JER 09:01
PROC: 3E0333Z Introduction of Anti-inflammatory into Peripheral Vein, Percutaneous Approach (ICD-10-PCS; principal; 2017-06-02)
DX: R07.89 Other chest pain (principal); B34.9 Viral infection, unspecified
CPT/HCPCS: 36415; 71046-TC; 80053; 81003; 81015; 82550; 82553; 84484; 84703; 85025; 85610; 85730; 87804; 93005; 93010; 99284-25

== ENCOUNTER 2019-01-09 05:44 | Inpatient (IN) | payer OTHER ==
[2019-01-09] MEDS ORDERED: IPRATROPIUM BR 0.02% 0.5 MG/2.5 ML VIAL.NEB. NEB ONE (06:10)
[2019-01-09] MEDS ORDERED: ALBUTEROL SO4 0.083% IH SOL 2.5 MG/3 ML VIAL.NEB. NEB ONE (06:10)
--- NOTE | 2019-01-09 06:13 | PDOC ---
History of Present Illness - General Chief Complaint: Cold Symptoms Stated Complaint: COLD SYMPTOMS Time Seen by Provider: 01/09/19 05:56 History Source: Patient - History of Present Illness Initial Comments: 01/09/19 06:06 28-year-old female complaining of cough, throat pain, chills since yesterday. Patient reports that cough is worse with laying down. Denies nausea, vomiting, diarrhea, abdominal pain, urinary symptoms, chest pain. ONE EPISODE of reactive airway disease with bronchitis, myocarditis 2017 Past History - Past Medical History Allergies/Adverse Reactions: Allergies Allergy/AdvReac Type Severity Reaction Status Date / Time bee pollen Allergy Verified 01/09/19 09:39 bay flavor Allergy Verified 01/09/19 09:39 No Known Drug Allergies Allergy Verified 01/09/19 09:39 Home Medications: Ambulatory Orders NK [No Known Home Medication] 01/09/19 COPD: No DVT: No - Suicide/Smoking/Psychosocial Hx Smoking History: Never smoked Hx Alcohol Use: No Drug/Substance Use Hx: No Substance Use Type: None Review of Systems - Review of Systems Able to Perform ROS?: Yes Is the patient limited Belgian proficient: No Constitutional: Yes: Chills. No: Symptoms Reported, See HPI, Diaphoresis, Fever , Loss of Appetite, Malaise, Night Sweats, Weakness, Weight Stable, Unintentional Wgt. Loss, Unexplained wgt Loss, Other HEENTM: Yes: Throat Pain Respiratory: Yes: Cough, Wheezing, Productive cough. No: Symptoms reported, See HPI, Orthopnea, Shortness of Breath, SOB with Exertion, SOB at Rest, Stridor , Hemoptysis, Other Cardiac (ROS): No: Symptoms Reported, See HPI, Chest Pain, Edema, Irregular Heart Rate, Lightheadedness, Palpitations, Syncope, Chest Tightness, Other ABD/GI: No: Symptoms Reported, See HPI, Abdominal Distended, Abd. Pain w/ defecation, Blood Streaked Bowels, Constipated, Diarrhea, Difficulty Swallowing , Nausea, Poor Appetite, Poor Fluid Intake, Rectal Bleeding, Vomiting, Indigestion, Abdominal cramping, Tarry Stools, Other *Physical Exam - Vital Signs 01/09/19 06:21 Last Vital Signs Temp Pulse Resp BP Pulse Ox 98.8 F 98 H 20 171/94 H 95 01/09/19 06:05 01/09/19 06:05 01/09/19 06:05 01/09/19 06:05 01/09/19 06:05 - Physical Exam General Appearance: Yes: Appropriately Dressed HEENT: positive: Pharyngeal Erythema, Other (no exudTE) Respiratory/Chest: positive: Rales, Wheezing Cardiovascular: positive: Tachycardia Gastrointestinal/Abdominal: positive: Normal Bowel Sounds, Soft. negative: Tender Extremity: positive: Normal Capillary Refill, Normal Inspection, Normal Range of Motion Integumentary: positive: Normal Color, Dry, Warm Neurologic: positive: Fully Oriented, Alert ED Treatment Course - LABORATORY CBC & Chemistry Diagram: 01/09/19 08:00 01/09/19 08:00 Medical Decision Making - Medical Decision Making RAD P: duonebs prednisone.. chest xray patient signed out to Virginia brower. may need further testing if symptoms persist *DC/Admit/Observation/Transfer Diagnosis at time of Disposition: Reactive airway disease with wheezing Qualifiers: Asthma severity: mild Asthma persistence: persistent Asthma complication type: with acute exacerbation Qualified Code(s): J45.31 - Mild persistent asthma with (acute) exacerbation - Discharge Dispostion Condition at time of disposition: Stable Decision to Admit order: Yes - Referrals - Patient Instructions - Post Discharge Activity
[2019-01-09] MEDS: ALBUTEROL SO4 2.5/IPRATROPIUM 0.5 INH SOL 3 ML VIAL.NEB. NEB SCH ×4 (06:15→07:13)
--- NOTE | 2019-01-09 06:38 | PDOC ---
*Physical Exam - Vital Signs Last Vital Signs Temp Pulse Resp BP Pulse Ox 98.8 F 98 H 20 171/94 H 95 01/09/19 06:05 01/09/19 06:05 01/09/19 06:05 01/09/19 06:05 01/09/19 06:05 Medical Decision Making - Medical Decision Making 01/09/19 06:38 Patient seen by the advanced practice provider under my direct supervision. Ancillary testing reviewed as necessary. I agree with plan as outlined by the advanced practice provider. *DC/Admit/Observation/Transfer Diagnosis at time of Disposition: Reactive airway disease with wheezing Qualifiers: Asthma severity: mild Asthma persistence: persistent Asthma complication type: with acute exacerbation Qualified Code(s): J45.31 - Mild persistent asthma with (acute) exacerbation - Referrals Referrals: Milton Jenkins MD [Primary Care Provider] - - Patient Instructions - Post Discharge Activity
[2019-01-09] MEDS ORDERED: predniSONE 20 MG TABLET (UD) PO ONE (06:53)
[2019-01-09] MEDS ORDERED: predniSONE 20 MG TABLET (UD) ONE (07:09)
[2019-01-09] MEDS ORDERED: ALBUTEROL SO4 2.5/IPRATROPIUM 0.5 INH SOL 3 ML VIAL.NEB. NEB ONE (07:09)
[2019-01-09 07:11] LABS: PH,URINE 5.5 (5.0-8.0); URINE APPEARANCE CLEAR; URINE BILIRUBIN NEGATIVE (NEGATIVE); URINE COLOR YELLOW; URINE GLUCOSE (UA) NEGATIVE (NEGATIVE); URINE KETONE NEGATIVE (NEGATIVE); URINE LEUK ESTERASE NEGATIVE (NEGATIVE); URINE NITRITE NEGATIVE (NEGATIVE); URINE PROTEIN NEGATIVE (NEGATIVE); URINE UROBILINOGEN 0.2 mg/dL (0.2-1.0)
--- NOTE | 2019-01-09 07:15 | PDOC ---
*Physical Exam - Vital Signs Last Vital Signs Temp Pulse Resp BP Pulse Ox 98.8 F 98 H 20 171/94 H 95 01/09/19 06:05 01/09/19 06:05 01/09/19 06:05 01/09/19 06:05 01/09/19 06:05 ED Treatment Course - LABORATORY CBC & Chemistry Diagram: 01/09/19 08:00 01/09/19 08:00 - ADDITIONAL ORDERS Additional order review: Laboratory Results 01/09/19 01/09/19 06:50 06:50 Urine Color Yellow Urine Appearance Clear Urine pH 5.5 Ur Specific [place] 1.018 Urine Protein Negative Urine Glucose (UA) Negative Urine Ketones Negative Urine Blood Negative Urine Nitrite Negative Urine Bilirubin Negative Urine Urobilinogen 0.2 Ur Leukocyte Esterase Negative Urine HCG, Qual Negative - Medications Given in the ED: ED Medications Discontinued Medications Generic Name Dose Route Start Last Admin Trade Name Freq PRN Reason Stop Dose Admin Albuterol/Ipratropium 1 amp 01/09/19 06:15 01/09/19 07:13 Duoneb - NEB 01/09/19 07:01 1 amp Q15M RONEY Administration Prednisone 60 mg 01/09/19 06:53 01/09/19 07:13 Deltasone - PO 01/09/19 06:54 60 mg ONCE ONE Administration Medical Decision Making - Medical Decision Making Patient signed out to me by CHRIS George pending reassessment Patient currently receiving her 4th neb treatment and just received PO Prednisone now Patient feels slight improvement from meds given thus far Rapid strep sent by prior provider and pending results CXR and EKG pending as well 01/09/19 07:14 Patient still with body aches, cough Lungs with expiratory wheezing States slightly improved since coming in CXR negative Rapid strep negative Will get labs, give Mg and likely admit for further monitoring 01/09/19 07:50 EKG Sinus tach at 102, TWI lead III, aVF, V3 Patient meets 0 criteria for [place]; not suspicious for PE Labs sent and pending 01/09/19 08:13 Labs unremarkable patient admitted for further monitoring 01/09/19 08:46 *DC/Admit/Observation/Transfer Diagnosis at time of Disposition: Reactive airway disease with wheezing Qualifiers: Asthma severity: mild Asthma persistence: persistent Asthma complication type: with acute exacerbation Qualified Code(s): J45.31 - Mild persistent asthma with (acute) exacerbation - Discharge Dispostion Condition at time of disposition: Stable Decision to Admit order: Yes - Referrals Referrals: Milton Jenkins MD [Primary Care Provider] - - Patient Instructions - Post Discharge Activity
[2019-01-09] MEDS ORDERED: MAGNESIUM SULF 50% (8.12 MEQ/2 ML-1 GM VIAL) IVPB ONE (07:49)
[2019-01-09 08:14] LABS: BASO % 0.2 % (0-2.0); HEMATOCRIT 39.6 % (32.4-45.2); HEMOGLOBIN 13.3 GM/dL (10.7-15.3); LYMPH % 11.2 % (8-40); MCH 31.5 pg (25.7-33.7); MCHC 33.7 g/dl (32.0-36.0); MEAN CELL VOLUME 93.5 fl (80-96); MEAN PLT VOLUME 8.4 fl (7.5-11.1); MONO % 5.3 % (3.8-10.2); NEUT % 82.3 % (42.8-82.8); PLATELET COUNT 199 K/MM3 (134-434); RBC 4.24 M/mm3 (3.60-5.2); RDW 13.1 % (11.6-15.6)
[2019-01-09 08:42] LABS: ALBUMIN 3.6 g/dl (3.4-5.0); ALK PHOS 66 U/L (45-117); ANION GAP 6 MMOL/L (8-16); BILIRUBIN,TOTAL 0.5 mg/dL (0.2-1); CALCIUM 8.6 mg/dL (8.5-10.1); CHLORIDE 112 mmol/L (98-107); CO2 23 mmol/L (21-32); CREATININE 0.7 mg/dL (0.55-1.3); GLUCOSE,RANDOM 112 mg/dL (74-106); POTASSIUM 3.8 mmol/L (3.5-5.1); SGOT/AST 18 U/L (15-37); SGPT/ALT 16 U/L (13-61); SODIUM 141 mmol/L (136-145); TOT PROT 6.9 g/dl (6.4-8.2)
[2019-01-09] MEDS ORDERED: MAGNESIUM SULF 50% (8.12 MEQ/2 ML-1 GM VIAL) ONE (08:51)
--- NOTE | 2019-01-09 12:42 | EKG ---
Test Reason : Blood Pressure : / mmHG Vent. Rate : 102 BPM Atrial Rate : 102 BPM P-R Int : 154 ms QRS Dur : 094 ms QT Int : 324 ms P-R-T Axes : 062 037 -14 degrees QTc Int : 422 ms SINUS TACHYCARDIA T WAVE ABNORMALITY, CONSIDER INFERIOR ISCHEMIA ABNORMAL ECG Confirmed by Elieser Roa MD ([id number]) on 01/09/2019 12:42:29 PM Referred By: Confirmed By:Elieser Roa MD
[2019-01-09] MEDS ORDERED: guaiFENesin 200 MG/10 ML 10 ML UNIT-DOSE CUPS PO PRN (13:15)
[2019-01-09] MEDS ORDERED: ceFAZolin SODIUM 1 GM VIAL ONE ×2 (13:42→17:03)
[2019-01-09] MEDS ORDERED: DEXTROSE 5%-WATER - 50 ML IVPB ONE ×2 (13:43→17:03)
[2019-01-09] MEDS: CEFAZOLIN 1 GM in DEXTROSE 5%-WATER - 50 ML IVPB SCH ×2 (14:22→17:11)
[2019-01-09] MEDS ORDERED: ALBUTEROL SO4 2.5/IPRATROPIUM 0.5 INH SOL 3 ML VIAL.NEB. NEB PRN (14:28)
[2019-01-09 15:29] VITALS: BMI 34.3
[2019-01-09] MEDS ORDERED: guaiFENesin/CODEINE 10 ML UNIT-DOSE CUPS PO PRN (15:40)
[2019-01-09] MEDS: guaiFENesin/CODEINE 5 ML UNIT-DOSE CUPS PO PRN ×2 (17:11→21:19)
[2019-01-09] MEDS ORDERED: methylPREDNISolone NA SUCC 125 MG/2 ML VIAL IVPUSH SCH (18:00)
[2019-01-09] MEDS: HYDROCORTISONE SOD SUCCINATE 100 MG/2 ML VIAL IVPB SCH (18:44)
[2019-01-10] MEDS ORDERED: DEXTROSE 5%-WATER - 50 ML IVPB ONE ×3 (01:06→16:45)
[2019-01-10] MEDS ORDERED: ceFAZolin SODIUM 1 GM VIAL ONE ×3 (01:06→16:45)
[2019-01-10] MEDS: HYDROCORTISONE SOD SUCCINATE 100 MG/2 ML VIAL IVPB SCH ×2 (01:13→09:30)
[2019-01-10] MEDS: CEFAZOLIN 1 GM in DEXTROSE 5%-WATER - 50 ML IVPB SCH ×3 (01:14→17:19)
[2019-01-10] MEDS: guaiFENesin/CODEINE 10 ML UNIT-DOSE CUPS PO PRN ×2 (01:19→07:46)
--- NOTE | 2019-01-10 10:46 | HP ---
DATE OF ADMISSION: 01/09/2019 HISTORY OF PRESENT ILLNESS: This is a 28-year-old female no medical problems in the past, came to the emergency room yesterday with the complaints of short of breath. FAMILY HISTORY: Patient has a family history of bronchial asthma. PAST MEDICAL HISTORY: No other medical problems. She received IV steroids and IV antibiotics and still this morning she had breathing problems. PHYSICAL EXAMINATION: Vitals: BP 140/80, pulse 88, respiration 20, temperature 98. HEENT: Unremarkable. Neck: Supple, no JVD. Lungs: Bilateral wheeze. Heart: S1, S2 normal, no S3, S4. Abdomen: Soft. Extremities: Legs no edema. Neurologic: Grossly normal. LABORATORY REPORTS: WBC 11, hemoglobin 13, hematocrit 39. Chemistry: Electrolytes are normal. Chest x-ray negative. IMPRESSION: Acute bronchial asthma. PLAN: IV antibiotics, IV steroids, Pulmonary consult to . Will follow this patient. Constance [id number]
--- NOTE | 2019-01-10 13:47 | CON.PULM ---
Consult Consult Specialty:: PULMONARY Referred by:: Dr Jenkins Reason for Consultation:: shortness of breath - History of Present Illness Chief Complaint: chest tightness History of Present Illness: 28yo female without significant past medical history who was admitted with cough and chest tightness x 2 days. No fevers but with chills. Cough is nonproductive and wheezing. Reports sore throat without runny nose. No nausea, vomiting. Had similar episode about 2 years ago also with URI symptoms. She is a nonsmoker. Has multiple family members with asthma. No recent travel or sick contacts. - History Source History Provided By: Patient, Medical Record Limitations to Obtaining History: No Limitations - Past Medical History ...LMP: 05/23/16 - Alcohol/Substance Use Hx Alcohol Use: No - Smoking History Smoking history: Never smoked Have you smoked in the past 12 months: No - Social History ADL: Independent History of Recent Travel: No Home Medications - Allergies Allergies/Adverse Reactions: Allergies Allergy/AdvReac Type Severity Reaction Status Date / Time bee pollen Allergy Verified 01/09/19 09:39 bay flavor Allergy Verified 01/09/19 09:39 No Known Drug Allergies Allergy Verified 01/09/19 09:39 - Home Medications Home Medications: Ambulatory Orders NK [No Known Home Medication] 01/09/19 Family Disease History - Family Disease History Family Disease History: Heart Disease: Mother Review of Systems - Review of Systems Constitutional: reports: Chills. denies: Fever Eyes: denies: Recent Change in Vision HENT: reports: Throat Pain. denies: Nasal Congestion Neck: denies: Stiffness, Tenderness Cardiovascular: reports: Shortness of Breath. denies: Chest Pain, Edema, Palpitations Respiratory: reports: Cough, SOB on Exertion, Wheezing. denies: Hemoptysis Gastrointestinal: denies: Abdominal Pain, Nausea, Vomiting Genitourinary: denies: Dysuria, Hematuria Neurological: denies: Dizziness, Headache Endocrine: denies: Unexplained Weight Loss Physical Exam Vital Sings: Vital Signs Temperature 98.3 F 01/10/19 09:37 Pulse Rate 81 01/10/19 09:37 Respiratory Rate 20 01/10/19 09:37 Blood Pressure 137/83 01/10/19 09:37 O2 Sat by Pulse Oximetry (%) 95 01/09/19 21:00 Constitutional: Yes: Calm Eyes: Yes: Conjunctiva Clear, EOM Intact HENT: Yes: Atraumatic, Normocephalic Neck: Yes: Supple, Trachea Midline Cardiovascular: Yes: Regular Rate and Rhythm Respiratory: Yes: Rhonchi, Wheezes ...Clubbing: No Gastrointestinal: Yes: Normal Bowel Sounds, Soft. No: Tenderness Edema: No Neurological: Yes: Alert, Oriented Labs: CBC, BMP 01/09/19 08:00 01/09/19 08:00 Imaging - Results Chest X-ray: Report Reviewed, Image Reviewed (no infiltrates) Problem List - Problems (1) Acute asthma exacerbation Code(s): J45.901 - UNSPECIFIED ASTHMA WITH (ACUTE) EXACERBATION Assessment/Plan Acute Asthma Exacerbation URI - IV medrol - inhaled bronchodilators standing and PRN - start Singulair, Symbicort, continue as outpt - monitor peak flow - outpt PFTs - DVT prophylaxis Thank you for this consult Michael Beverly MD
[2019-01-10] MEDS: ALBUTEROL SO4 2.5/IPRATROPIUM 0.5 INH SOL 3 ML VIAL.NEB. NEB SCH ×2 (16:27→20:15)
[2019-01-10] MEDS: methylPREDNISolone NA SUCC 40 MG/1 ML VIAL IVPUSH SCH (17:19)
[2019-01-10] MEDS: BUDESONIDE/FORMETEROL FUMARATE 160/4.5 mcg INHALER IH SCH ×2 (17:20→21:58)
[2019-01-10] MEDS: MONTELUKAST NA 10 MG TABLET PO SCH (21:59)
[2019-01-11] MEDS ORDERED: ceFAZolin SODIUM 1 GM VIAL ONE ×3 (02:11→16:49)
[2019-01-11] MEDS ORDERED: DEXTROSE 5%-WATER - 50 ML IVPB ONE ×3 (02:11→16:49)
[2019-01-11] MEDS: methylPREDNISolone NA SUCC 40 MG/1 ML VIAL IVPUSH SCH ×3 (02:23→17:17)
[2019-01-11] MEDS: CEFAZOLIN 1 GM in DEXTROSE 5%-WATER - 50 ML IVPB SCH ×3 (02:23→17:19)
[2019-01-11] MEDS: guaiFENesin/CODEINE 10 ML UNIT-DOSE CUPS PO PRN ×3 (04:22→23:38)
[2019-01-11] MEDS: ALBUTEROL SO4 2.5/IPRATROPIUM 0.5 INH SOL 3 ML VIAL.NEB. NEB SCH ×4 (08:00→20:38)
--- NOTE | 2019-01-11 09:16 | PN ---
Progress Note (short form) - Note Progress Note: Still with bouts of congested cough and wheezing. No CP. No hemoptysis. PEF measurement pending. Intake & Output 01/08/19 01/09/19 01/10/19 01/11/19 23:59 23:59 23:59 23:59 Intake Total 150 1140 50 Balance 150 1140 50 Weight 213 lb Last Vital Signs Temp Pulse Resp BP Pulse Ox 98.8 F 91 H 19 124/79 99 01/10/19 22:00 01/10/19 22:00 01/10/19 22:00 01/10/19 22:00 01/10/19 21:00 Active Medications Albuterol Sulfate (Ventolin 0.083% Nebulizer Soln -) 1 amp NEB Q4H PRN PRN Reason: SHORT OF BREATH/WHEEZING Albuterol/Ipratropium (Duoneb -) 1 amp NEB RQID [facility] Last Admin: 01/11/19 08:00 Dose: 1 amp Budesonide/Formoterol Fumarate (Symbicort 160/4.5mcg -) 2 puff IH BID [facility] Last Admin: 01/10/19 21:58 Dose: 2 puff Guaifenesin/Codeine Phosphate (Robitussin Ac -) 10 ml PO Q4H PRN PRN Reason: COUGH Last Admin: 01/11/19 04:22 Dose: 10 ml Cefazolin Sodium 1 gm/ (Dextrose) 50 mls @ 100 mls/hr IVPB Q8H-IV [facility] Last Admin: 01/11/19 02:23 Dose: 100 mls/hr Methylprednisolone Sodium Succinate (Solu-Medrol -) 40 mg IVPUSH Q8H-IV [facility] Last Admin: 01/11/19 02:23 Dose: 40 mg Montelukast Sodium (Singulair -) 10 mg PO HS [facility] Last Admin: 01/10/19 21:59 Dose: 10 mg Constitutional: Yes: NAD Eyes: Yes: Conjunctiva Clear, EOM Intact HENT: Yes: Atraumatic, Normocephalic Neck: Yes: Supple, Trachea Midline Cardiovascular: Yes: Regular Rate and Rhythm Respiratory: Yes: Bilateral expiratory wheeze and scattered Rhonchi ...Clubbing: No Gastrointestinal: Yes: Normal Bowel Sounds, Soft. No: Tenderness Edema: No Neurological: Yes: Alert, Oriented Labs: Problem List - Problems (1) Acute asthma exacerbation Code(s): J45.901 - UNSPECIFIED ASTHMA WITH (ACUTE) EXACERBATION Assessment/Plan Acute Asthma Exacerbation URI No clear history consistent with OSAS - IV medrol - inhaled bronchodilators standing and PRN - Singulair, Symbicort - monitor peak flow - outpt PFTs - DVT prophylaxis Dr Albert
--- NOTE | 2019-01-11 09:47 | PN ---
Progress Note, Physician Chief Complaint: Still C/O SOB History of Present Illness: consult - Current Medication List Current Medications: Active Medications Albuterol Sulfate (Ventolin 0.083% Nebulizer Soln -) 1 amp NEB Q4H PRN PRN Reason: SHORT OF BREATH/WHEEZING Albuterol/Ipratropium (Duoneb -) 1 amp NEB RQID [facility] Last Admin: 01/11/19 08:00 Dose: 1 amp Budesonide/Formoterol Fumarate (Symbicort 160/4.5mcg -) 2 puff IH BID [facility] Last Admin: 01/10/19 21:58 Dose: 2 puff Guaifenesin/Codeine Phosphate (Robitussin Ac -) 10 ml PO Q4H PRN PRN Reason: COUGH Last Admin: 01/11/19 04:22 Dose: 10 ml Cefazolin Sodium 1 gm/ (Dextrose) 50 mls @ 100 mls/hr IVPB Q8H-IV [facility] Last Admin: 01/11/19 02:23 Dose: 100 mls/hr Methylprednisolone Sodium Succinate (Solu-Medrol -) 40 mg IVPUSH Q8H-IV [facility] Last Admin: 01/11/19 02:23 Dose: 40 mg Montelukast Sodium (Singulair -) 10 mg PO HS [facility] Last Admin: 01/10/19 21:59 Dose: 10 mg - Objective Vital Signs: Vital Signs Temperature 98.8 F 01/10/19 22:00 Pulse Rate 91 H 01/10/19 22:00 Respiratory Rate 01/10/19 22:00 Blood Pressure 124/79 01/10/19 22:00 O2 Sat by Pulse Oximetry (%) 99 01/10/19 21:00 Constitutional: Yes: Mild Distress Eyes: Yes: WNL HENT: Yes: WNL, Tonsillar Exudate Cardiovascular: Yes: WNL Respiratory: Yes: SOB Gastrointestinal: Yes: WNL ...Rectal Exam: Yes: Deferred Breast(s): Yes: WNL Musculoskeletal: Yes: WNL Edema: No Peripheral Pulses WNL: Yes Neurological: Yes: Alert Labs: CBC, BMP 01/09/19 08:00 01/09/19 08:00 Assessment/Plan Case discussed with Dr Arriola Advised to continue same trt
[2019-01-11] MEDS: ENOXAPARIN NA (PORCINE) 30 MG/0.3 ML DISP.SYRIN SQ SCH ×2 (10:43→22:37)
[2019-01-11] MEDS: BUDESONIDE/FORMETEROL FUMARATE 160/4.5 mcg INHALER IH SCH ×2 (10:44→22:37)
[2019-01-11] MEDS: MONTELUKAST NA 10 MG TABLET PO SCH (22:37)
[2019-01-12] MEDS ORDERED: DEXTROSE 5%-WATER - 50 ML IVPB ONE ×3 (02:20→17:13)
[2019-01-12] MEDS ORDERED: ceFAZolin SODIUM 1 GM VIAL ONE ×3 (02:20→17:13)
[2019-01-12] MEDS: methylPREDNISolone NA SUCC 40 MG/1 ML VIAL IVPUSH SCH ×3 (02:37→17:21)
[2019-01-12] MEDS: CEFAZOLIN 1 GM in DEXTROSE 5%-WATER - 50 ML IVPB SCH ×3 (02:37→17:21)
[2019-01-12] MEDS: ALBUTEROL SO4 2.5/IPRATROPIUM 0.5 INH SOL 3 ML VIAL.NEB. NEB SCH ×4 (07:35→20:15)
--- NOTE | 2019-01-12 09:08 | PN ---
Progress Note, Physician Chief Complaint: still C/O SOB Cough persists - Current Medication List Current Medications: Active Medications Albuterol Sulfate (Ventolin 0.083% Nebulizer Soln -) 1 amp NEB Q4H PRN PRN Reason: SHORT OF BREATH/WHEEZING Albuterol/Ipratropium (Duoneb -) 1 amp NEB RQID [facility] Last Admin: 01/12/19 07:35 Dose: 1 amp Budesonide/Formoterol Fumarate (Symbicort 160/4.5mcg -) 2 puff IH BID [facility] Last Admin: 01/11/19 22:37 Dose: 2 puff Enoxaparin Sodium (Lovenox -) 30 mg SQ BID [facility] Last Admin: 01/11/19 22:37 Dose: 30 mg Guaifenesin/Codeine Phosphate (Robitussin Ac -) 10 ml PO Q4H PRN PRN Reason: COUGH Last Admin: 01/11/19 23:38 Dose: 10 ml Cefazolin Sodium 1 gm/ (Dextrose) 50 mls @ 100 mls/hr IVPB Q8H-IV [facility] Last Admin: 01/12/19 02:37 Dose: 100 mls/hr Azithromycin 500 mg/ Dextrose 250 mls @ 250 mls/hr IVPB DAILY [facility] Methylprednisolone Sodium Succinate (Solu-Medrol -) 40 mg IVPUSH Q8H-IV [facility] Last Admin: 01/12/19 02:37 Dose: 40 mg Montelukast Sodium (Singulair -) 10 mg PO HS [facility] Last Admin: 01/11/19 22:37 Dose: 10 mg - Objective Vital Signs: Vital Signs Temperature 97.8 F 01/12/19 06:00 Pulse Rate 47 L 01/12/19 06:00 Respiratory Rate 20 01/12/19 06:00 Blood Pressure 119/72 01/12/19 06:00 O2 Sat by Pulse Oximetry (%) 98 01/11/19 21:00 Constitutional: Yes: Mild Distress Eyes: Yes: WNL HENT: Yes: WNL Neck: Yes: WNL Cardiovascular: Yes: WNL Respiratory: Yes: Wheezes Gastrointestinal: Yes: WNL, Other ...Rectal Exam: Yes: Deferred Genitourinary: Yes: WNL Breast(s): Yes: WNL Musculoskeletal: Yes: WNL Extremities: Yes: WNL Edema: No Integumentary: Yes: WNL Neurological: Yes: Alert ...Motor Strength: WNL Psychiatric: Yes: Alert Labs: CBC, BMP 01/09/19 08:00 01/09/19 08:00 Assessment/Plan Add azythomycin IV
[2019-01-12] MEDS: ENOXAPARIN NA (PORCINE) 30 MG/0.3 ML DISP.SYRIN SQ SCH ×2 (09:55→21:23)
[2019-01-12] MEDS: guaiFENesin/CODEINE 10 ML UNIT-DOSE CUPS PO PRN (09:55)
[2019-01-12] MEDS: BUDESONIDE/FORMETEROL FUMARATE 160/4.5 mcg INHALER IH SCH ×2 (09:57→21:23)
[2019-01-12] MEDS: AZITHROMYCIN IVPB 500 MG/250 ML BAG IVPB SCH (10:02)
--- NOTE | 2019-01-12 13:56 | PN ---
Progress Note (short form) - Note Progress Note: PULMONARY Had a bad night with cough/wheeze PEF measurement ordered vss/afebrile Constitutional: Yes: NAD Eyes: Yes: Conjunctiva Clear, EOM Intact HENT: Yes: Atraumatic, Normocephalic Neck: Yes: Supple, Trachea Midline Cardiovascular: Yes: Regular Rate and Rhythm Respiratory: Yes: Bilateral expiratory wheeze and scattered Rhonchi ...Clubbing: No Gastrointestinal: Yes: Normal Bowel Sounds, Soft. No: Tenderness Edema: No Neurological: Yes: Alert, Oriented Acute Asthma Exacerbation URI ?OSAS - IV medrol same dose - inhaled bronchodilators standing and PRN - Singulair, Symbicort - monitor peak flow - outpt PFTs - DVT prophylaxis Johanny DODGE MD
[2019-01-12] MEDS: MONTELUKAST NA 10 MG TABLET PO SCH (21:23)
[2019-01-13] MEDS: ALBUTEROL SO4 0.083% IH SOL 2.5 MG/3 ML VIAL.NEB. NEB PRN (00:28)
[2019-01-13] MEDS: guaiFENesin/CODEINE 10 ML UNIT-DOSE CUPS PO PRN ×3 (01:06→22:46)
[2019-01-13] MEDS ORDERED: DEXTROSE 5%-WATER - 50 ML IVPB ONE ×3 (01:11→17:24)
[2019-01-13] MEDS ORDERED: ceFAZolin SODIUM 1 GM VIAL ONE ×3 (01:11→17:24)
[2019-01-13] MEDS: methylPREDNISolone NA SUCC 40 MG/1 ML VIAL IVPUSH SCH ×3 (01:18→18:06)
[2019-01-13] MEDS: CEFAZOLIN 1 GM in DEXTROSE 5%-WATER - 50 ML IVPB SCH ×3 (01:19→17:26)
[2019-01-13] MEDS: ALBUTEROL SO4 2.5/IPRATROPIUM 0.5 INH SOL 3 ML VIAL.NEB. NEB SCH ×4 (07:46→19:58)
[2019-01-13] MEDS: AZITHROMYCIN IVPB 500 MG/250 ML BAG IVPB SCH (10:27)
[2019-01-13] MEDS: ENOXAPARIN NA (PORCINE) 30 MG/0.3 ML DISP.SYRIN SQ SCH ×2 (10:27→22:44)
[2019-01-13] MEDS: BUDESONIDE/FORMETEROL FUMARATE 160/4.5 mcg INHALER IH SCH ×2 (10:30→22:44)
--- NOTE | 2019-01-13 12:17 | PN ---
Progress Note (short form) - Note Progress Note: PULMONARY Cough/wheezes persist PEF 250 VSS/AFEBRILE Constitutional: Yes: NAD Eyes: Yes: Conjunctiva Clear, EOM Intact HENT: Yes: Atraumatic, Normocephalic Neck: Yes: Supple, Trachea Midline Cardiovascular: Yes: Regular Rate and Rhythm Respiratory: Yes: Bilateral expiratory wheeze and scattered Rhonchi ...Clubbing: No Gastrointestinal: Yes: Normal Bowel Sounds, Soft. No: Tenderness Edema: No Neurological: Yes: Alert, Oriented MEDS/NOTES/IMAGES REVIEWED Acute Asthma Exacerbation URI ?OSAS - IV medrol same dose - inhaled bronchodilators standing and PRN - Singulair, Symbicort - monitor peak flow - outpt PFTs - DVT prophylaxis Johanny DODGE MD
--- NOTE | 2019-01-13 12:51 | PN ---
Progress Note, Physician Chief Complaint: Still c/o cough - Current Medication List Current Medications: Active Medications Albuterol Sulfate (Ventolin 0.083% Nebulizer Soln -) 1 amp NEB Q4H PRN PRN Reason: SHORT OF BREATH/WHEEZING Last Admin: 01/13/19 00:28 Dose: 1 amp Albuterol/Ipratropium (Duoneb -) 1 amp NEB RQID [facility] Last Admin: 01/13/19 11:12 Dose: 1 amp Budesonide/Formoterol Fumarate (Symbicort 160/4.5mcg -) 2 puff IH BID [facility] Last Admin: 01/13/19 10:30 Dose: 2 puff Enoxaparin Sodium (Lovenox -) 30 mg SQ BID [facility] Last Admin: 01/13/19 10:27 Dose: 30 mg Cefazolin Sodium 1 gm/ (Dextrose) 50 mls @ 100 mls/hr IVPB Q8H-IV [facility] Last Admin: 01/13/19 10:27 Dose: 100 mls/hr Azithromycin (Zithromax 500mg Ivpb (Pre-Docked)) 500 mg in 250 mls @ 250 mls/ hr IVPB DAILY [facility] Last Admin: 01/13/19 10:27 Dose: 250 mls/hr Methylprednisolone Sodium Succinate (Solu-Medrol -) 40 mg IVPUSH Q8H-IV [facility] Last Admin: 01/13/19 10:27 Dose: 40 mg Montelukast Sodium (Singulair -) 10 mg PO HS [facility] Last Admin: 01/12/19 21:23 Dose: 10 mg - Objective Vital Signs: Vital Signs Temperature 97.9 F 01/13/19 09:09 Pulse Rate 75 01/13/19 09:09 Respiratory Rate 19 01/13/19 09:09 Blood Pressure 129/79 01/13/19 09:09 O2 Sat by Pulse Oximetry (%) 98 01/12/19 21:00 Constitutional: Yes: Well Nourished, No Distress HENT: Yes: Atraumatic, Normocephalic Neck: Yes: Supple, Trachea Midline. No: Lymphadenopathy Cardiovascular: Yes: Regular Rate and Rhythm, Bradycardia, S1, S2. No: JVD, Gallop, Murmur Respiratory: Yes: Wheezes. No: Accessory Muscle Use Gastrointestinal: Yes: Normal Bowel Sounds, Soft Extremities: Yes: WNL. No: Amputation, Calf Tenderness Edema: No Peripheral Pulses: Left Doralis Pedis: 2+, Right Dorsalis Pedis: 2+ Neurological: Yes: Alert, Oriented ...Motor Strength: WNL, LUE, LLE, RUE, RLE Psychiatric: Yes: WNL Labs: CBC, BMP 01/09/19 08:00 01/09/19 08:00 Problem List - Problems (1) Acute asthma exacerbation Assessment/Plan: Cont IV solumedrol, Duoneb and MDIs Code(s): J45.901 - UNSPECIFIED ASTHMA WITH (ACUTE) EXACERBATION
[2019-01-13] MEDS: MONTELUKAST NA 10 MG TABLET PO SCH (22:44)
[2019-01-14] MEDS ORDERED: DEXTROSE 5%-WATER - 50 ML IVPB ONE ×2 (01:23→09:14)
[2019-01-14] MEDS ORDERED: ceFAZolin SODIUM 1 GM VIAL ONE ×2 (01:23→09:13)
[2019-01-14] MEDS: CEFAZOLIN 1 GM in DEXTROSE 5%-WATER - 50 ML IVPB SCH ×2 (01:58→09:56)
[2019-01-14] MEDS: guaiFENesin/CODEINE 10 ML UNIT-DOSE CUPS PO PRN ×3 (01:58→22:35)
[2019-01-14] MEDS: methylPREDNISolone NA SUCC 40 MG/1 ML VIAL IVPUSH SCH ×3 (01:58→17:32)
[2019-01-14] MEDS: ALBUTEROL SO4 2.5/IPRATROPIUM 0.5 INH SOL 3 ML VIAL.NEB. NEB SCH ×2 (07:20→11:34)
[2019-01-14 07:50] LABS: HEMATOCRIT 40.6 % (32.4-45.2); HEMOGLOBIN 13.6 GM/dL (10.7-15.3); LYMPH % 12.9 % (8-40); MCH 31.5 pg (25.7-33.7); MCHC 33.6 g/dl (32.0-36.0); MEAN PLT VOLUME 9.2 fl (7.5-11.1); MONO % 6.1 % (3.8-10.2); PLATELET COUNT 243 K/MM3 (134-434); RBC 4.32 M/mm3 (3.60-5.2); RDW 13.3 % (11.6-15.6); WHITE BLOOD COUNT 11.5 K/mm3 (4.0-10.0)
[2019-01-14 07:53] LABS: BLOOD UREA NITROGEN 11.1 mg/dL (7-18); CALCIUM 9.1 mg/dL (8.5-10.1); CREATININE 0.8 mg/dL (0.55-1.3); POTASSIUM 4.7 mmol/L (3.5-5.1)
[2019-01-14] MEDS: AZITHROMYCIN IVPB 500 MG/250 ML BAG IVPB SCH (09:56)
[2019-01-14] MEDS: BUDESONIDE/FORMETEROL FUMARATE 160/4.5 mcg INHALER IH SCH ×2 (09:57→22:36)
[2019-01-14] MEDS: ENOXAPARIN NA (PORCINE) 30 MG/0.3 ML DISP.SYRIN SQ SCH (09:57)
--- NOTE | 2019-01-14 12:19 | PN ---
Progress Note (short form) - Note Progress Note: PULMONARY Cough/wheezes persist PEF 250-280 VSS/AFEBRILE Constitutional: Yes: NAD Eyes: Yes: Conjunctiva Clear, EOM Intact HENT: Yes: Atraumatic, Normocephalic Neck: Yes: Supple, Trachea Midline Cardiovascular: Yes: Regular Rate and Rhythm Respiratory: Yes: Bilateral expiratory wheeze and scattered Rhonchi ...Clubbing: No Gastrointestinal: Yes: Normal Bowel Sounds, Soft. No: Tenderness Edema: No Neurological: Yes: Alert, Oriented MEDS/NOTES/IMAGES REVIEWED Acute Asthma Exacerbation URI ?OSAS - IV medrol same dose - inhaled bronchodilators standing and PRN - Singulair, Symbicort - monitor peak flow - outpt PFTs - DVT prophylaxis Johanny DODGE MD
--- NOTE | 2019-01-14 14:40 | PN ---
Progress Note, Physician Chief Complaint: Still c/o cough, less SOB - Current Medication List Current Medications: Active Medications Albuterol Sulfate (Ventolin 0.083% Nebulizer Soln -) 1 amp NEB Q4H PRN PRN Reason: SHORT OF BREATH/WHEEZING Last Admin: 01/13/19 00:28 Dose: 1 amp Budesonide/Formoterol Fumarate (Symbicort 160/4.5mcg -) 2 puff IH BID [facility] Last Admin: 01/14/19 09:57 Dose: 2 puff Guaifenesin/Codeine Phosphate (Robitussin Ac -) 10 ml PO Q4H PRN PRN Reason: COUGH Last Admin: 01/14/19 09:57 Dose: 10 ml Azithromycin (Zithromax 500mg Ivpb (Pre-Docked)) 500 mg in 250 mls @ 250 mls/ hr IVPB DAILY [facility] Last Admin: 01/14/19 09:56 Dose: 250 mls/hr Methylprednisolone Sodium Succinate (Solu-Medrol -) 40 mg IVPUSH Q8H-IV [facility] Last Admin: 01/14/19 09:56 Dose: 40 mg Montelukast Sodium (Singulair -) 10 mg PO HS [facility] Last Admin: 01/13/19 22:44 Dose: 10 mg - Objective Vital Signs: Vital Signs Temperature 98.0 F 01/14/19 10:00 Pulse Rate 54 L 01/14/19 10:00 Respiratory Rate 18 01/14/19 10:00 Blood Pressure 121/81 01/14/19 10:00 O2 Sat by Pulse Oximetry (%) 99 01/14/19 09:00 Constitutional: Well Nourished, No Distress HEENT: Atraumatic, Normocephalic Neck: Supple, Trachea Midline. No: Lymphadenopathy Cardiovascular: Regular Rate and Rhythm, S1, S2. No: JVD, Gallop, Murmur Respiratory: Minimal Wheezes. No: Accessory Muscle Use Gastrointestinal: Normal Bowel Sounds, Soft Extremities: WNL. No: Calf Tenderness no Edema:Peripheral Pulses: Left Doralis Pedis: 2+, Right Dorsalis Pedis: 2+ Neurological: Alert, OrientedMotor Strength: WNL, LUE, LLE, RUE, RLE Labs: CBC, BMP 01/14/19 06:00 01/14/19 06:00 Problem List - Problems (1) Acute asthma exacerbation Assessment/Plan: Improving on current management PFR 280 cnt Albuterol, IV steroid can be swiched to Po from tomorrow cont symbicort Code(s): J45.901 - UNSPECIFIED ASTHMA WITH (ACUTE) EXACERBATION (2) Bronchitis Assessment/Plan: Completed 5 days IV abx will DC IV no fever TWBC is stable, completed azithromycine day 3rd will cont PO Code(s): J40 - BRONCHITIS, NOT SPECIFIED ACUTE OR CHRONIC
[2019-01-14] MEDS: ALBUTEROL SO4 0.083% IH SOL 2.5 MG/3 ML VIAL.NEB. NEB PRN ×2 (19:09→22:08)
[2019-01-14] MEDS: MONTELUKAST NA 10 MG TABLET PO SCH (22:35)
[2019-01-15] MEDS: methylPREDNISolone NA SUCC 40 MG/1 ML VIAL IVPUSH SCH ×2 (02:31→10:09)
[2019-01-15] MEDS: ALBUTEROL SO4 0.083% IH SOL 2.5 MG/3 ML VIAL.NEB. NEB PRN (07:45)
[2019-01-15] MEDS ORDERED: AZITHROMYCIN 250 MG TABLET PO SCH (10:00)
[2019-01-15] MEDS ORDERED: ENOXAPARIN NA (PORCINE) 40 MG/0.4 ML DISP.SYRIN SQ SCH (10:00)
[2019-01-15] MEDS ORDERED: predniSONE 20 MG TABLET (UD) PO SCH (10:00)
--- NOTE | 2019-01-15 10:04 | PN ---
Progress Note (short form) - Note Progress Note: PULMONARY Still wheezing but able to ambulate down hallway and back. +nonproductive cough. Vital Signs Period Temp Pulse Resp BP Sys/Julian Pulse Ox Last 24 Hr 97.6 F-98 F 60-76 20-20 129-141/71-84 95 Gen: NAD at rest Heart: RRR Lung: bilateral wheezes, rhonchi Abd: soft, nontender Ext: no edema CBC, BMP 01/14/19 06:00 01/14/19 06:00 Active Medications Albuterol Sulfate (Ventolin 0.083% Nebulizer Soln -) 1 amp NEB Q4H PRN PRN Reason: SHORT OF BREATH/WHEEZING Last Admin: 01/15/19 07:45 Dose: 1 amp Budesonide/Formoterol Fumarate (Symbicort 160/4.5mcg -) 2 puff IH BID [facility] Last Admin: 01/14/19 22:36 Dose: 2 puff Enoxaparin Sodium (Lovenox -) 40 mg SQ DAILY [facility] Guaifenesin/Codeine Phosphate (Robitussin Ac -) 10 ml PO Q4H PRN PRN Reason: COUGH Last Admin: 01/14/19 22:35 Dose: 10 ml Azithromycin (Zithromax 500mg Ivpb (Pre-Docked)) 500 mg in 250 mls @ 250 mls/ hr IVPB DAILY [facility] Last Admin: 01/14/19 09:56 Dose: 250 mls/hr Methylprednisolone Sodium Succinate (Solu-Medrol -) 40 mg IVPUSH Q8H-IV [facility] Last Admin: 01/15/19 02:31 Dose: 40 mg Montelukast Sodium (Singulair -) 10 mg PO HS [facility] Last Admin: 01/14/19 22:35 Dose: 10 mg Prednisone (Deltasone -) 60 mg PO DAILY [facility] A/P Acute Asthma Exacerbation URI - can change to prednisone PO and taper as outpt - inhaled bronchodilators standing and PRN - continue Singulair, Symbicort - monitor peak flow - outpt PFTs - DVT prophylaxis - can be discharged home from pulmonary standpoint on prednisone taper Problem List - Problems (1) Acute asthma exacerbation Code(s): J45.901 - UNSPECIFIED ASTHMA WITH (ACUTE) EXACERBATION
[2019-01-15] MEDS: AZITHROMYCIN IVPB 500 MG/250 ML BAG IVPB SCH (10:09)
[2019-01-15] MEDS: guaiFENesin/CODEINE 10 ML UNIT-DOSE CUPS PO PRN (10:09)
[2019-01-15] MEDS: BUDESONIDE/FORMETEROL FUMARATE 160/4.5 mcg INHALER IH SCH (10:16)
[2019-01-15 13:00] VITALS: TEMP 98
[2019-01-15 14:35] VITALS: BP 133/87; PULSE 63
--- NOTE | 2019-01-15 15:19 | DS ---
Physical Examination Vital Signs: Vital Signs Temperature 98.0 F 01/15/19 14:34 Pulse Rate 63 01/15/19 14:34 Respiratory Rate 18 01/15/19 14:34 Blood Pressure 133/87 01/15/19 14:34 O2 Sat by Pulse Oximetry (%) 95 01/15/19 09:00 Findings/Remarks: Feels better,not much wheeze Constitutional: Yes: Calm Eyes: Yes: WNL HENT: Yes: WNL Neck: Yes: WNL Cardiovascular: Yes: WNL Respiratory: Yes: SOB on Exertion Gastrointestinal: Yes: Normal Bowel Sounds ...Rectal Exam: Yes: Deferred Renal/: Yes: WNL Breast(s): Yes: WNL Edema: No Integumentary: Yes: WNL Neurological: Yes: Alert ...Motor Strength: WNL Psychiatric: Yes: WNL Labs: CBC, BMP 01/14/19 06:00 01/14/19 06:00 Discharge Summary Reason For Visit: REACTIV AIRWAY DISEASE WITH WHEEZING Current Active Problems Acute asthma exacerbation (Acute) Reactive airway disease with wheezing (Acute) Condition: Stable - Instructions - Home Medications Comprehensive Discharge Medication List: Ambulatory Orders NK [No Known Home Medication] 01/09/19
== END 2019-01-15 16:56 | disposition home or self-care (01) | DRG 141 ==
LOC: JER 05:44 → JERBED 08:46 → J7W 11:55
PROVIDERS: ADMIT Internal Medicine; ATTEND Internal Medicine
DX: J45.31 Mild persistent asthma with (acute) exacerbation (principal); J06.9 Acute upper respiratory infection, unspecified; G47.33 Obstructive sleep apnea (adult) (pediatric)
CPT/HCPCS: 36415; 71046-TC-FY; 80048; 80053; 81003; 84484; 84703; 85025; 87070; 87880; 93005; 93010; 94150; 94640; 99284-25